=== PATIENT | female | born 1955 | race Two or more races ===

== ENCOUNTER → 2024-01-24 | Outpatient (CLI) | payer MEDICARE, MEDICAID, SELFPAY ==
[2024-01-24 11:43] LABS: Basophils % (Auto) 1 % (0-2.5); Eosinophils # (Auto) 0.1 Thou/mm3 (0.0-0.5); Eosinophils % (Auto) 1 % (0-10); Hematocrit 35.9 % (36.0-46.0); Hemoglobin 11.3 g/dL (12.0-16.0); Immature Granulocytes % (Auto) 1 % (0-0); Immature Granulocytes Auto 0.06 Thou/mm3 (0.00-0.00); Immature Reticulocyte Fraction 18.4 % (3.0-15.9); Lymphocytes # (Auto) 0.9 Thou/mm3 (1.0-4.8); Lymphocytes % (Auto) 21 % (10-50); Mean Corpuscular HGB Conc 31.5 g/dl (31.0-37.0); Mean Corpuscular Hemoglobin 37.2 pg (25.0-35.0); Mean Corpuscular Volume 118 fL (80-100); Monocytes # (Auto) 0.6 Thou/mm3 (0.0-0.8); Monocytes % (Auto) 14 % (0-12); Neutrophils # (Auto) 2.7 Thou/mm3 (1.8-7.7); Neutrophils % (Auto) 62 % (37-80); Nucleated Red Blood Cell % 0 /100 WBC (0); Platelet Count 188 Thou/mm3 (140-440); RDW Standard Deviation 52.7 fL (36.4-46.3); Red Blood Count 3.04 Miln/mm3 (4.00-5.20); Reticulocyte % (Auto) 2.9 % (0.5-1.5); Reticulocyte Absolute Auto 87.2 Biln/L (25.0-75.0); Reticulocyte Hgb Content 35.3 pg (28.0-35.0); White Blood Count 4.5 Thou/mm3 (3.6-11.0)
[2024-01-24 12:00] LABS: Alanine Aminotransferase 326 U/L (10-49); Albumin, Serum 3.5 gm/dL (3.4-4.8); Albumin/Globulin Ratio 1.9 (1.2-2.2); Alkaline Phosphatase 198 U/L (46-116); Anion Gap 3 (7-16); Aspartate Amino Transferase 143 U/L (0-34); BUN/Creatinine Ratio 32 Ratio (12-20); Bilirubin,Total 0.3 mg/dL (0.3-1.2); Blood Urea Nitrogen 19 mg/dL (9-23); Calcium 8.7 mg/dL (8.3-10.6); Calcium (Corrected) 9.1 mg/dL (8.5-10.1); Carbon Dioxide 26.4 mMol/L (20.0-31.0); Chloride 109 mMol/L (98-107); Creatinine (Component) 0.6 mg/dL (0.6-1.3); Globulin 1.8 gm/dL (2.3-3.5); Glucose 104 mg/dL (74-106); Osmolality,Calculated 277 (275-295); Potassium 4.5 mMol/L (3.4-5.1); Sodium 138 mMol/L (136-145); Total Protein 5.3 gm/dL (5.7-8.2); eGFR > 60 See Note
[2024-01-24 12:05] LABS: Folate 9.95 ng/mL (>5.38); Vitamin B12 467 pg/mL (211-911)
[2024-01-24 12:14] LABS: Ferritin 1093 ng/mL (7.3-270.7); Iron 54 mcg/dL (50-170); Percent Iron Saturation 19 % (20-55); Total Iron Binding Capacity 281 mcg/dL (250-425); Unsaturated Iron Binding 227 (225-295)
== END | disposition home or self-care (01) ==
LOC: SCTO 10:44
PROVIDERS: PCP Physician Assistant; Referring Provider Nurse Practitioner Family; Visit Provider Nurse Practitioner Family
DX: D50.9 Iron deficiency anemia, unspecified (principal)
CPT/HCPCS: 36415; 80053; 82607; 82728; 82746; 83540; 83550; 85025; 85046

== ENCOUNTER → 2024-01-28 | Outpatient (CLI) | payer MEDICARE, MEDICAID, SELFPAY ==
[2024-01-28 09:33] LABS: Alanine Aminotransferase 83 U/L (10-49); Albumin, Serum 3.5 gm/dL (3.4-4.8); Albumin/Globulin Ratio 2.1 (1.2-2.2); Alkaline Phosphatase 130 U/L (46-116); Anion Gap 6 (7-16); Aspartate Amino Transferase 21 U/L (0-34); BUN/Creatinine Ratio 26 Ratio (12-20); Bilirubin,Total 0.2 mg/dL (0.3-1.2); Blood Urea Nitrogen 21 mg/dL (9-23); Calcium 8.8 mg/dL (8.3-10.6); Calcium (Corrected) 9.2 mg/dL (8.5-10.1); Carbon Dioxide 26.3 mMol/L (20.0-31.0); Chloride 107 mMol/L (98-107); Creatinine (Component) 0.8 mg/dL (0.6-1.3); Globulin 1.7 gm/dL (2.3-3.5); Glucose 96 mg/dL (74-106); Osmolality,Calculated 280 (275-295); Potassium 4.8 mMol/L (3.4-5.1); Sodium 139 mMol/L (136-145); Total Protein 5.2 gm/dL (5.7-8.2); eGFR > 60 See Note
== END | disposition home or self-care (01) ==
LOC: CDIM 08:21 → COPL 08:25
PROVIDERS: PCP Physician Assistant; Referring Provider Internal Medicine; Visit Provider Internal Medicine
DX: D50.9 Iron deficiency anemia, unspecified (principal); E21.3 Hyperparathyroidism, unspecified; E55.9 Vitamin D deficiency, unspecified; G47.00 Insomnia, unspecified; G60.9 Hereditary and idiopathic neuropathy, unspecified; I10 Essential (primary) hypertension; J45.909 Unspecified asthma, uncomplicated; K25.9 Gastric ulcer, unspecified as acute or chronic, without hemorrhage or perforation; K90.9 Intestinal malabsorption, unspecified; M18.12 Unilateral primary osteoarthritis of first carpometacarpal joint, left hand; M19.011 Primary osteoarthritis, right shoulder; M25.511 Pain in right shoulder; M54.9 Dorsalgia, unspecified; M81.0 Age-related osteoporosis without current pathological fracture; Z13.820 Encounter for screening for osteoporosis; Z78.0 Asymptomatic menopausal state; Z79.899 Other long term (current) drug therapy
CPT/HCPCS: 36415; 80053

== ENCOUNTER → 2024-02-10 | Outpatient (CLI) | payer MEDICARE, MEDICAID, SELFPAY ==
[2024-02-10 13:57] LABS: Basophils # (Auto) 0.1 Thou/mm3 (0.0-0.2); Basophils % (Auto) 1 % (0-2.5); Eosinophils # (Auto) 0.1 Thou/mm3 (0.0-0.5); Eosinophils % (Auto) 1 % (0-10); Hematocrit 37.4 % (36.0-46.0); Hemoglobin 11.9 g/dL (12.0-16.0); Immature Granulocytes % (Auto) 3 % (0-0); Immature Granulocytes Auto 0.19 Thou/mm3 (0.00-0.00); Lymphocytes # (Auto) 1.4 Thou/mm3 (1.0-4.8); Lymphocytes % (Auto) 18 % (10-50); Mean Corpuscular HGB Conc 31.8 g/dl (31.0-37.0); Mean Corpuscular Hemoglobin 36.1 pg (25.0-35.0); Mean Corpuscular Volume 113 fL (80-100); Monocytes # (Auto) 0.7 Thou/mm3 (0.0-0.8); Monocytes % (Auto) 9 % (0-12); Neutrophils # (Auto) 5.4 Thou/mm3 (1.8-7.7); Neutrophils % (Auto) 69 % (37-80); Nucleated Red Blood Cell % 0 /100 WBC (0); Platelet Count 264 Thou/mm3 (140-440); White Blood Count 7.7 Thou/mm3 (3.6-11.0)
[2024-02-10 14:22] LABS: Alanine Aminotransferase 30 U/L (10-49); Albumin, Serum 3.5 gm/dL (3.4-4.8); Albumin/Globulin Ratio 1.9 (1.2-2.2); Alkaline Phosphatase 86 U/L (46-116); Anion Gap 7 (7-16); Aspartate Amino Transferase 26 U/L (0-34); BUN/Creatinine Ratio 21 Ratio (12-20); Bilirubin,Total 0.2 mg/dL (0.3-1.2); Blood Urea Nitrogen 19 mg/dL (9-23); Calcium 8.6 mg/dL (8.3-10.6); Carbon Dioxide 23.1 mMol/L (20.0-31.0); Chloride 107 mMol/L (98-107); Creatinine (Component) 0.9 mg/dL (0.6-1.3); Globulin 1.8 gm/dL (2.3-3.5); Glucose 75 mg/dL (74-106); Osmolality,Calculated 275 (275-295); Potassium 4.4 mMol/L (3.4-5.1); Sodium 137 mMol/L (136-145); Total Protein 5.3 gm/dL (5.7-8.2); eGFR > 60 See Note
[2024-02-10 14:25] LABS: Folate 20.21 ng/mL (>5.38); Vitamin B12 859 pg/mL (211-911)
[2024-02-10 15:14] LABS: Ferritin 497 ng/mL (7.3-270.7); Total Iron Binding Capacity 260 mcg/dL (250-425)
[2024-02-10 16:09] LABS: Iron 59 mcg/dL (50-170); Percent Iron Saturation 22 % (20-55); Unsaturated Iron Binding 201 (225-295)
[2024-02-10 16:58] LABS: Path Review Blood Smear Sent to Pathologist
== END | disposition home or self-care (01) ==
LOC: SCTO 13:22
PROVIDERS: PCP Physician Assistant; Referring Provider Nurse Practitioner Family; Visit Provider Nurse Practitioner Family
DX: D50.9 Iron deficiency anemia, unspecified (principal)
CPT/HCPCS: 36415; 80053; 82607; 82728; 82746; 83540; 83550; 85025

== ENCOUNTER 2024-02-13 11:01 | Outpatient (RCR) | payer MEDICARE, MEDICAID, SELFPAY | END 2024-02-22 23:59 | disposition home or self-care (01) | LOC: SCTC 11:01 | PROVIDERS: PCP Physician Assistant; Referring Provider Physician Assistant; Visit Provider Nurse Practitioner Family | DX: D50.9 Iron deficiency anemia, unspecified (principal); E53.8 Deficiency of other specified B group vitamins; Z87.11 Personal history of peptic ulcer disease; Z90.3 Acquired absence of stomach [part of]; R92.333 Mammographic heterogeneous density, bilateral breasts | CPT/HCPCS: 96372; 99212; J3420; G0463 ==

== ENCOUNTER → 2024-03-03 | Outpatient (CLI) | payer MEDICARE, MEDICAID, SELFPAY ==
[2024-03-03 13:22] LABS: Basophils # (Auto) 0.1 Thou/mm3 (0.0-0.2); Basophils % (Auto) 1 % (0-2.5); Eosinophils # (Auto) 0.1 Thou/mm3 (0.0-0.5); Eosinophils % (Auto) 2 % (0-10); Hematocrit 37.3 % (36.0-46.0); Hemoglobin 11.7 g/dL (12.0-16.0); Immature Granulocytes % (Auto) 2 % (0-0); Immature Granulocytes Auto 0.08 Thou/mm3 (0.00-0.00); Immature Reticulocyte Fraction 27.8 % (3.0-15.9); Lymphocytes # (Auto) 1.2 Thou/mm3 (1.0-4.8); Lymphocytes % (Auto) 27 % (10-50); Mean Corpuscular HGB Conc 31.4 g/dl (31.0-37.0); Mean Corpuscular Hemoglobin 36.1 pg (25.0-35.0); Mean Corpuscular Volume 115 fL (80-100); Monocytes # (Auto) 0.4 Thou/mm3 (0.0-0.8); Monocytes % (Auto) 8 % (0-12); Neutrophils # (Auto) 2.8 Thou/mm3 (1.8-7.7); Neutrophils % (Auto) 61 % (37-80); Nucleated Red Blood Cell % 0 /100 WBC (0); Platelet Count 267 Thou/mm3 (140-440); RDW Standard Deviation 53.1 fL (36.4-46.3); Red Blood Count 3.24 Miln/mm3 (4.00-5.20); Reticulocyte % (Auto) 3.1 % (0.5-1.5); Reticulocyte Absolute Auto 101.7 Biln/L (25.0-75.0); White Blood Count 4.6 Thou/mm3 (3.6-11.0)
[2024-03-03 13:50] LABS: Alanine Aminotransferase 98 U/L (10-49); Albumin, Serum 3.6 gm/dL (3.4-4.8); Albumin/Globulin Ratio 2.3 (1.2-2.2); Alkaline Phosphatase 71 U/L (46-116); Anion Gap 6 (7-16); Aspartate Amino Transferase 68 U/L (0-34); BUN/Creatinine Ratio 16 Ratio (12-20); Bilirubin,Total 0.2 mg/dL (0.3-1.2); Blood Urea Nitrogen 11 mg/dL (9-23); Calcium 8.5 mg/dL (8.3-10.6); Calcium (Corrected) 8.8 mg/dL (8.5-10.1); Carbon Dioxide 29.3 mMol/L (20.0-31.0); Chloride 107 mMol/L (98-107); Creatinine (Component) 0.7 mg/dL (0.6-1.3); Globulin 1.6 gm/dL (2.3-3.5); Glucose 98 mg/dL (74-106); Osmolality,Calculated 282 (275-295); Potassium 4.3 mMol/L (3.4-5.1); Sodium 142 mMol/L (136-145); Total Protein 5.2 gm/dL (5.7-8.2); eGFR > 60 See Note
[2024-03-03 15:13] LABS: Folate 13.88 ng/mL (>5.38); Vitamin B12 462 pg/mL (211-911)
[2024-03-03 16:06] LABS: Ferritin 401 ng/mL (7.3-270.7); Total Iron Binding Capacity 277 mcg/dL (250-425)
[2024-03-03 16:22] LABS: Iron 74 mcg/dL (50-170); Percent Iron Saturation 26 % (20-55); Unsaturated Iron Binding 203 (225-295)
== END | disposition home or self-care (01) ==
LOC: SCTO 12:50
PROVIDERS: PCP Physician Assistant; Referring Provider Nurse Practitioner Family; Visit Provider Nurse Practitioner Family
DX: D50.9 Iron deficiency anemia, unspecified (principal)
CPT/HCPCS: 36415; 80053; 82607; 82728; 82746; 83540; 83550; 85025; 85046

== ENCOUNTER → 2024-03-05 | Outpatient (CLI) | payer MEDICARE, MEDICAID, SELFPAY ==
--- NOTE | 2024-03-05 13:00 | XR_ITS ---
Examination: CT abdomen with intravenous contrast CT pelvis with intravenous contrast 2-D coronal reconstructions 2-D sagittal reconstructions Date and time of exam:March 05, 2024 1422 hours INDICATIONS: Abdominal pain with nausea vomiting beginning 2 weeks ago, enlarged common bile duct [address] study July 20, 2016,. Diagnosis anemia. CTDI: vol (mGy) 4.8 DLP: (mGycm) 265 Technique: Multiple axial sections of the abdomen and pelvis have been obtained. 64 slice high-resolution scanner used. 3 mm axial sections have been obtained, post intravenous injection 60 cc [id number] 2-D sagittal, coronal reconstructions obtained. Low dose protocols were performed. One or more of the following dose reduction techniques were used; automated exposure control, adjustment of the mA and/or KV according to patient size, use of iterative reconstruction technique. Findings: No focal liver lesions Intrahepatic biliary tract dilatation Absent gallbladder Common bile duct 12 mm Spleen not enlarged No pancreatic or adrenal mass Minimally dilated pancreatic duct No hydronephrosis Aorta normal size Normal appendix No bowel obstruction Mildly thickened small bowel loop dumont No bowel obstruction No pelvic mass Moderate osteopenia IMPRESSION: Mild enlargement, bile duct, recommend hepatobiliary sonography follow-up Small bowel enteritis pattern
== END | disposition home or self-care (01) ==
PROVIDERS: PCP Physician Assistant; Referring Provider Nurse Practitioner Family; Visit Provider Nurse Practitioner Family
DX: K83.8 Other specified diseases of biliary tract (principal)
CPT/HCPCS: 74177; A4649; Q9967

== ENCOUNTER → 2024-04-09 | Outpatient (CLI) | payer MEDICARE, MEDICAID, SELFPAY ==
[2024-04-09 11:59] LABS: Basophils # (Auto) 0.1 Thou/mm3 (0.0-0.2); Basophils % (Auto) 1 % (0-2.5); Eosinophils # (Auto) 0.1 Thou/mm3 (0.0-0.5); Eosinophils % (Auto) 2 % (0-10); Hematocrit 36.5 % (36.0-46.0); Hemoglobin 11.7 g/dL (12.0-16.0); Immature Granulocytes % (Auto) 1 % (0-0); Immature Granulocytes Auto 0.04 Thou/mm3 (0.00-0.00); Immature Reticulocyte Fraction 30.3 % (3.0-15.9); Lymphocytes # (Auto) 2.1 Thou/mm3 (1.0-4.8); Lymphocytes % (Auto) 35 % (10-50); Mean Corpuscular HGB Conc 32.1 g/dl (31.0-37.0); Mean Corpuscular Hemoglobin 36.2 pg (25.0-35.0); Mean Corpuscular Volume 113 fL (80-100); Monocytes # (Auto) 0.5 Thou/mm3 (0.0-0.8); Monocytes % (Auto) 8 % (0-12); Neutrophils # (Auto) 3.2 Thou/mm3 (1.8-7.7); Neutrophils % (Auto) 54 % (37-80); Nucleated Red Blood Cell % 0 /100 WBC (0); Platelet Count 218 Thou/mm3 (140-440); RDW Standard Deviation 51.3 fL (36.4-46.3); Red Blood Count 3.23 Miln/mm3 (4.00-5.20); Reticulocyte Absolute Auto 96.6 Biln/L (25.0-75.0); Reticulocyte Hgb Content 36.6 pg (28.0-35.0); White Blood Count 5.9 Thou/mm3 (3.6-11.0)
[2024-04-09 12:17] LABS: Alanine Aminotransferase 22 U/L (10-49); Albumin, Serum 3.8 gm/dL (3.4-4.8); Albumin/Globulin Ratio 2.4 (1.2-2.2); Alkaline Phosphatase 64 U/L (46-116); Anion Gap 7 (7-16); Aspartate Amino Transferase 17 U/L (0-34); BUN/Creatinine Ratio 23 Ratio (12-20); Bilirubin,Total 0.2 mg/dL (0.3-1.2); Blood Urea Nitrogen 14 mg/dL (9-23); Calcium 9.1 mg/dL (8.3-10.6); Calcium (Corrected) 9.3 mg/dL (8.5-10.1); Carbon Dioxide 27.1 mMol/L (20.0-31.0); Chloride 108 mMol/L (98-107); Creatinine (Component) 0.6 mg/dL (0.6-1.3); Globulin 1.6 gm/dL (2.3-3.5); Glucose 104 mg/dL (74-106); Osmolality,Calculated 283 (275-295); Sodium 142 mMol/L (136-145); Total Protein 5.4 gm/dL (5.7-8.2); eGFR > 60 See Note
[2024-04-09 20:30] LABS: Folate 11.91 ng/mL (>5.38); Vitamin B12 422 pg/mL (211-911)
[2024-04-09 22:47] LABS: Ferritin 238 ng/mL (7.3-270.7); Total Iron Binding Capacity 294 mcg/dL (250-425)
[2024-04-09 22:56] LABS: Iron 56 mcg/dL (50-170); Percent Iron Saturation 19 % (20-55); Unsaturated Iron Binding 238 (225-295)
== END | disposition home or self-care (01) ==
PROVIDERS: PCP Nurse Practitioner Family; Referring Provider Nurse Practitioner Family; Visit Provider Nurse Practitioner Family
DX: D64.9 Anemia, unspecified (principal); D50.9 Iron deficiency anemia, unspecified
CPT/HCPCS: 36415; 80053; 82607; 82728; 82746; 83540; 83550; 85025; 85046

== ENCOUNTER 2024-05-05 09:28 | Outpatient (RCR) | payer MEDICARE, MEDICAID, SELFPAY | END 2024-05-22 23:59 | disposition home or self-care (01) | LOC: SCTC 09:28 | PROVIDERS: PCP Physician Assistant; Referring Provider Nurse Practitioner Family; Visit Provider Nurse Practitioner Family | DX: D50.9 Iron deficiency anemia, unspecified (principal); K83.8 Other specified diseases of biliary tract; E53.8 Deficiency of other specified B group vitamins | CPT/HCPCS: 36415; 80053; 80074; 82607; 82728; 82746; 83540; 83550; 85025; 85046; 99212; G0463 ==

== ENCOUNTER → 2024-05-05 | Outpatient (CLI) | payer MEDICARE, SELFPAY ==
[2024-05-05 11:44] LABS: Basophils # (Auto) 0.1 Thou/mm3 (0.0-0.2); Basophils % (Auto) 1 % (0-2.5); Eosinophils # (Auto) 0.1 Thou/mm3 (0.0-0.5); Eosinophils % (Auto) 2 % (0-10); Hematocrit 37.2 % (36.0-46.0); Hemoglobin 11.5 g/dL (12.0-16.0); Immature Granulocytes % (Auto) 2 % (0-0); Immature Reticulocyte Fraction 27.5 % (3.0-15.9); Lymphocytes # (Auto) 1.4 Thou/mm3 (1.0-4.8); Lymphocytes % (Auto) 25 % (10-50); Mean Corpuscular HGB Conc 30.9 g/dl (31.0-37.0); Mean Corpuscular Hemoglobin 34.5 pg (25.0-35.0); Mean Corpuscular Volume 112 fL (80-100); Monocytes # (Auto) 0.5 Thou/mm3 (0.0-0.8); Monocytes % (Auto) 10 % (0-12); Neutrophils # (Auto) 3.3 Thou/mm3 (1.8-7.7); Neutrophils % (Auto) 60 % (37-80); Nucleated Red Blood Cell % 0 /100 WBC (0); Platelet Count 249 Thou/mm3 (140-440); RDW Standard Deviation 49.8 fL (36.4-46.3); Red Blood Count 3.33 Miln/mm3 (4.00-5.20); Reticulocyte % (Auto) 1.9 % (0.5-1.5); Reticulocyte Absolute Auto 62.9 Biln/L (25.0-75.0); Reticulocyte Hgb Content 34.7 pg (28.0-35.0); White Blood Count 5.6 Thou/mm3 (3.6-11.0)
[2024-05-05 12:22] LABS: Alanine Aminotransferase 27 U/L (10-49); Albumin, Serum 3.4 gm/dL (3.4-4.8); Albumin/Globulin Ratio 1.9 (1.2-2.2); Alkaline Phosphatase 51 U/L (46-116); Anion Gap 5 (7-16); Aspartate Amino Transferase 27 U/L (0-34); BUN/Creatinine Ratio 20 Ratio (12-20); Bilirubin,Total 0.2 mg/dL (0.3-1.2); Blood Urea Nitrogen 12 mg/dL (9-23); Calcium 8.8 mg/dL (8.3-10.6); Calcium (Corrected) 9.3 mg/dL (8.5-10.1); Carbon Dioxide 27.9 mMol/L (20.0-31.0); Chloride 110 mMol/L (98-107); Creatinine (Component) 0.6 mg/dL (0.6-1.3); Globulin 1.8 gm/dL (2.3-3.5); Glucose 106 mg/dL (74-106); Osmolality,Calculated 284 (275-295); Potassium 4.4 mMol/L (3.4-5.1); Sodium 143 mMol/L (136-145); Total Protein 5.2 gm/dL (5.7-8.2); eGFR > 60 See Note
[2024-05-05 12:25] LABS: Ferritin 203 ng/mL (7.3-270.7); Iron 41 mcg/dL (50-170); Percent Iron Saturation 15 % (20-55); Total Iron Binding Capacity 273 mcg/dL (250-425); Unsaturated Iron Binding 232 (225-295)
[2024-05-05 13:19] LABS: Folate 8.91 ng/mL (>5.38); Hepatitis A Antibody IgM Non Reactive (Non React); Hepatitis B Core Antibody IgM Non Reactive (Non React); Hepatitis B Surface Antigen Non Reactive (Non React); Hepatitis C Antibody Non Reactive (Non React); Vitamin B12 491 pg/mL (211-911)
== END | disposition home or self-care (01) ==
PROVIDERS: PCP Nurse Practitioner Family; Referring Provider Nurse Practitioner Family; Visit Provider Nurse Practitioner Family
DX: D50.9 Iron deficiency anemia, unspecified (principal)
CPT/HCPCS: 36415; 80053; 80074; 82607; 82728; 82746; 83540; 83550; 85025; 85046

== ENCOUNTER → 2024-05-07 | Outpatient (CLI) | payer MEDICARE, MEDICAID, SELFPAY ==
--- NOTE | 2024-05-07 10:30 | XR_ITS ---
Examination: Abdomen sonogram, Limited Date and time of exam: May 07, 2024 1033 hours INDICATIONS: Common bile duct 15 mm on ultrasound abdomen May 10, 2022 Technique: Real-time meyer scale transabdominal sonographic images of the upper abdomen obtained. Findings: Absent gallbladder Enlarged common bile duct 14 mm no definite stones Pancreatic head 2.4 cm Liver 15.6 cm smooth contour no focal liver lesions Normal hepatopedal portal venous flow Patent IVC IMPRESSION: Abnormally enlarged common bile duct 14 mm, consider MRCP follow-up
== END | disposition home or self-care (01) ==
LOC: CDIM 10:20
PROVIDERS: PCP Physician Assistant; Referring Provider Nurse Practitioner Family; Visit Provider Nurse Practitioner Family
DX: K83.9 Disease of biliary tract, unspecified (principal)
CPT/HCPCS: 76705

== ENCOUNTER → 2024-06-10 | Outpatient (CLI) | payer MEDICARE, MEDICAID, SELFPAY ==
--- NOTE | 2024-06-10 08:37 | XR_ITS ---
MRI abdomen, without contrast. MRCP Date and time of exam: 04/10/[address] abdomen pelvis March 05, 2024. INDICATIONS: Abdominal pain bloating nausea vomiting beginning one year ago, hepatobiliary sonography May 07, 2024 enlarged common bile duct Technique: Multiple axial and coronal images of the abdomen have been obtained with the Siemens 1.5T MRI scanner. Images obtained included T1 weighted transverse images, T2-weighted transverse images, T2-weighted transverse images fat-suppressed, T2 weighted haste fat suppressed transverse images, T1 weighted images, in and out of phase images, T2-weighted coronal images, breath hold, T2 weighted haze coronal images as well as T2 weighted coronal thick slab images, MRCP. Findings: Absent gallbladder Intrahepatic biliary tract dilatation Marked abnormal enlargement common bile duct 15 mm with 4 mm stone in the distal common bile duct and abrupt termination of the common bile duct No definite pancreatic mass Hepatomegaly 17 cm No ascites No hydronephrosis IMPRESSION: Abnormal extra hepatic biliary tract obstruction, abrupt tapering of the common bile duct, 4 mm stone in the distal common bile duct Recommend ERCP follow-up to exclude malignant stricture of the distal common bile duct
== END | disposition home or self-care (01) ==
PROVIDERS: Referring Provider Nurse Practitioner Family; Visit Provider Nurse Practitioner Family
DX: K76.89 Other specified diseases of liver (principal); K80.50 Calculus of bile duct without cholangitis or cholecystitis without obstruction
CPT/HCPCS: S8037; 74181

== ENCOUNTER → 2024-06-10 | Outpatient (CLI) | payer MEDICARE, MEDICAID, SELFPAY ==
[2024-06-10 11:03] LABS: Parathyroid Hormone Intact 96.1 pg/ml (18.5-88.0)
[2024-06-10 11:06] LABS: Vitamin D 25 Hydroxy Total 85.7 ng/mL (7.3-40.2)
[2024-06-10 11:15] LABS: Alanine Aminotransferase 52 U/L (10-49); Albumin, Serum 3.6 gm/dL (3.4-4.8); Albumin/Globulin Ratio 2.1 (1.2-2.2); Alkaline Phosphatase 79 U/L (46-116); Anion Gap 8 (7-16); Aspartate Amino Transferase 31 U/L (0-34); BUN/Creatinine Ratio 26 Ratio (12-20); Bilirubin,Total 0.2 mg/dL (0.3-1.2); Blood Urea Nitrogen 21 mg/dL (9-23); Calcium 8.7 mg/dL (8.3-10.6); Carbon Dioxide 27.7 mMol/L (20.0-31.0); Chloride 103 mMol/L (98-107); Creatinine (Component) 0.8 mg/dL (0.6-1.3); Globulin 1.7 gm/dL (2.3-3.5); Glucose 88 mg/dL (74-106); Osmolality,Calculated 279 (275-295); Phosphorous 3.9 mg/dL (2.4-5.1); Potassium 4.4 mMol/L (3.4-5.1); Sodium 139 mMol/L (136-145); Total Protein 5.3 gm/dL (5.7-8.2); eGFR > 60 See Note
[2024-06-14 15:35] LABS: Albumin 3.2 g/dL (3.8-4.8); Alpha-1-Globulin 0.3 g/dL (0.2-0.3); Alpha-2-Globulin 0.6 g/dL (0.5-0.9); Beta-1-Globulin 0.3 g/dL (0.4-0.6); Beta-2-globulin 0.3 g/dL (0.2-0.5); Gamma Globulin 0.5 g/dL (0.8-1.7)
[2024-06-15 07:00] LABS: Protein, total, serum 5.2 g/dL (6.1-8.1)
== END | disposition home or self-care (01) ==
PROVIDERS: PCP Physician Assistant
DX: D50.9 Iron deficiency anemia, unspecified (principal); E21.3 Hyperparathyroidism, unspecified; E55.9 Vitamin D deficiency, unspecified; G47.00 Insomnia, unspecified; G80.9 Cerebral palsy, unspecified; I10 Essential (primary) hypertension; J45.909 Unspecified asthma, uncomplicated; K25.4 Chronic or unspecified gastric ulcer with hemorrhage; K25.9 Gastric ulcer, unspecified as acute or chronic, without hemorrhage or perforation; K90.9 Intestinal malabsorption, unspecified; M18.12 Unilateral primary osteoarthritis of first carpometacarpal joint, left hand; M19.011 Primary osteoarthritis, right shoulder; M25.511 Pain in right shoulder; M54.9 Dorsalgia, unspecified; M81.0 Age-related osteoporosis without current pathological fracture; Z68.1 Body mass index [BMI] 19.9 or less, adult; Z78.0 Asymptomatic menopausal state; Z79.899 Other long term (current) drug therapy
CPT/HCPCS: 36415; 80053; 82306; 83970; 84100; 84155; 84165

== ENCOUNTER 2024-06-17 14:58 | Outpatient (RCR) | payer MEDICARE, MEDICAID, SELFPAY | END 2024-06-22 23:59 | disposition home or self-care (01) | LOC: SCTC 14:58 | PROVIDERS: PCP Physician Assistant; Referring Provider Physician Assistant; Visit Provider Nurse Practitioner Family | DX: D50.9 Iron deficiency anemia, unspecified (principal); E53.8 Deficiency of other specified B group vitamins; K83.8 Other specified diseases of biliary tract; K25.9 Gastric ulcer, unspecified as acute or chronic, without hemorrhage or perforation; Z90.3 Acquired absence of stomach [part of]; D24.1 Benign neoplasm of right breast | CPT/HCPCS: 96365; 96372; 99212; J2919; J3420; J3490; J7040; J7050; Q0138; G0463 ==

== ENCOUNTER → 2024-06-19 | Outpatient (CLI) | payer MEDICARE, MEDICAID, SELFPAY ==
[2024-06-19 09:52] LABS: Flow Cytometry* See Sep Rpt
[2024-06-19 10:23] LABS: Basophils % (Auto) 1 % (0-2.5); Eosinophils # (Auto) 0.1 Thou/mm3 (0.0-0.5); Eosinophils % (Auto) 2 % (0-10); Hematocrit 35.6 % (36.0-46.0); Hemoglobin 11.2 g/dL (12.0-16.0); Immature Granulocytes % (Auto) 2 % (0-0); Immature Granulocytes Auto 0.08 Thou/mm3 (0.00-0.00); Lymphocytes # (Auto) 1.1 Thou/mm3 (1.0-4.8); Lymphocytes % (Auto) 28 % (10-50); Mean Corpuscular HGB Conc 31.5 g/dl (31.0-37.0); Mean Corpuscular Hemoglobin 35.6 pg (25.0-35.0); Mean Corpuscular Volume 113 fL (80-100); Monocytes # (Auto) 0.3 Thou/mm3 (0.0-0.8); Monocytes % (Auto) 7 % (0-12); Neutrophils # (Auto) 2.4 Thou/mm3 (1.8-7.7); Neutrophils % (Auto) 61 % (37-80); Nucleated Red Blood Cell % 0 /100 WBC (0); Platelet Count 206 Thou/mm3 (140-440); RDW Standard Deviation 55.7 fL (36.4-46.3); Red Blood Count 3.15 Miln/mm3 (4.00-5.20)
[2024-06-19 10:57] LABS: Alanine Aminotransferase 23 U/L (10-49); Albumin, Serum 3.1 gm/dL (3.4-4.8); Albumin/Globulin Ratio 1.8 (1.2-2.2); Alkaline Phosphatase 68 U/L (46-116); Anion Gap 7 (7-16); Aspartate Amino Transferase 20 U/L (0-34); BUN/Creatinine Ratio 30 Ratio (12-20); Bilirubin,Total < 0.2 mg/dL (0.3-1.2); Blood Urea Nitrogen 15 mg/dL (9-23); Calcium 8.5 mg/dL (8.3-10.6); Calcium (Corrected) 9.2 mg/dL (8.5-10.1); Carbon Dioxide 29.3 mMol/L (20.0-31.0); Chloride 105 mMol/L (98-107); Creatinine (Component) 0.5 mg/dL (0.6-1.3); Globulin 1.7 gm/dL (2.3-3.5); Glucose 96 mg/dL (74-106); Osmolality,Calculated 282 (275-295); Sodium 141 mMol/L (136-145); Total Protein 4.8 gm/dL (5.7-8.2); eGFR > 60 See Note
== END | disposition home or self-care (01) ==
LOC: SCTO 09:35
PROVIDERS: PCP Physician Assistant; Referring Provider Nurse Practitioner Family; Visit Provider Nurse Practitioner Family
DX: D50.9 Iron deficiency anemia, unspecified (principal)
CPT/HCPCS: 36415; 80053; 85025

== ENCOUNTER 2024-07-06 14:33 | Outpatient (RCR) | payer MEDICARE, MEDICAID, SELFPAY ==
--- NOTE | 2024-07-02 14:04 | CTCFLWUP_ITS ---
Patient: AUDELIA WEST : 1955 Page 2 of 2 FOLLOW UP NOTE DATE OF SERVICE: 07/02/2024 NAME: AUDELIA WEST ACCOUNT: [id number] : 1955 AGE: 69 INTERVAL HISTORY: Chief Complaint Follow-up for anemia, enlarged red blood cells History of Present Illness Brett Win presents for follow-up of anemia and macrocytosis. The patient has been under care for these conditions, with a previous bone marrow biopsy last year that was negative for cancer. The patient's current visit is focused on reviewing recent test results and discussing ongoing management of her hematological issues. A recent blood analysis has again shown no evidence of cancer. The patient's anemia persists, and her red blood cells continue to be larger than normal. During the visit, it was noted that the patient has gallstones in her gallbladder and bile duct, necessitating a referral to gastroenterology for further evaluation and management. This finding may be related to her overall health status, though the connection to her hematological issues is not explici tly clear. Medical History - Anemia - Macrocytosis (larger cell size) Surgical History - Bone marrow biopsy last year ONCOLOGY HISTORY:?[facility] Oncology Hx? DIAGNOSIS: Iron deficiency anemia, unspecified [ICD10] D50.9 History of iron deficiency anemia. History of B12 deficiency, on monthly injections. Hx of partial gastrectomy twice due to peptic ulcer disease (1997, 1999). History of left intertrochanteric hip fracture (07/08/2022) Bone marrow biopsy negative, (06/13/2023 and 08/07/2022). Oozing gastric ulcers, EGD, (09/09/2023). s/p multiple Feraheme infusions ?[facility] Dx? DATE OF DIAGNOSIS: STAGE/TNM: TREATMENT HISTORY: Care?Plan Start?Date Cycle Day Intent FERAheme 08/05/2018 1 30 Palliative B?12 01/11/2022 1 28 Palliative VENOfer?200mg?IV?wkly?for?10?weeks 01/11/2022 1 70 Palliative FERAheme?4?doses 01/11/2022 1 28 Maintenance FERAheme?4?doses 07/29/2023 1 28 Palliative FERAheme?4?doses 11/21/2023 1 28 Palliative B?12?monthly 11/21/2023 1 28 Palliative FERAheme 06/08/2024 1 30 Palliative FERAheme 06/22/2024 1 30 Palliative HISTORY OF PRESENT ILLNESS: PREVIOUS NOTE: Patient unable to tolerate oral ferrous sulfate due to constipation. Last Feraheme infusion was on 12/19/2023. Patient follows up with Dr. Aguilar, GI. Patient denies bloody stools, chest pain vomiting fever. Ambulating well without any help. HISTORY: Audelia West is a 69-year-old [place] speaking female with following history. 1997: Patient had partial gastrectomy for peptic ulcer disease. 1999: Patient had repeat surgery on the stomach and according patient she had some more part of her stomach was removed due to recurrence of her peptic ulcer disease. Following that patient was getting repeat blood transfusions due to severe anemia. 2013: She was found to have iron deficiency anemia and received multiple IV iron infusions with significant improvement in her hemoglobin. More recently she was on Feraheme infusions. 08/13/2017: Patient received 510 mg of Feraheme. 01/02/2018: Patient had a bone marrow biopsy done which showed normocellular bone marrow with trilineage hematopoiesis and erythroid hyperplasia. No evidence of dysplasia, increased blasts, lymphoma or myeloma identified. As per the pathologist the prior bone marrow biopsy done on 05/06/2013 also showed a similar morphology. 08/05/2018?08/12/2018: Patient received 1020 mg of Feraheme. 02/12/2019: Hemoglobin 12.4, hematocrit 41, MCV 103. Iron saturation is 17% with a ferritin of 57. 09/09/2019: AST 536, ALT 576. T bili 0.3 iron saturation 12% with ferritin 977. 09/15/2019: AST 22, ALT 77. 09/28/2019?10/05/2019: Patient received 1020 mg of Feraheme. 04/25/2020: Hemoglobin 12.3, MCV 94, WBC 5.7, platelets 316,000. Iron saturation 12%, ferritin 35. 10/12/2020?10/18/2020: Patient received 1020 mg of Feraheme. 05/29/2021: WBC 6.9, hemoglobin 10.5, MCV 104, platelets 416,000, iron saturation 19%, ferritin 66, B12 381, folate 11.8. 06/29/2021: EGD? 07/27/2021: Repeat EGD? 09/11/2021: WBC 11.4, ANC 5.6, bands 8%, metamyelocytes 5%, myelocytes 13%, promyelocytes 2%, hemoglobin 8.8, MCV 110, platelets 398,000. Iron saturation 32%, ferritin 239, B12 513, folate of 9.9, TSH 2.76. 10/19/2021: Bone marrow biopsy and aspiration 12/28/2021: Vitamin B12 205 (211?911) 06/25/2022 - 07/02/2022: Ms. West received 1020 mg of Feraheme. She also received B12 1000 mcg. 08/09/2022 - 08/16/2022: Ms. West received 1020 mg of Feraheme. 08/07/2022: Bone marrow biopsy and aspiration? 08/13/2022: Hemoglobin 12.7, MCV 105, WBC 5.4, ANC 3.8, platelets 255,000, creatinine 0.5, iron saturation 36%, ferritin 793, B12 473. 12/14/2022: Hemoglobin 11.7, MCV 113, WBC 7.4, ANC 5.1, platelets 277,000, creatinine 0.7, her iron saturation is 18%, and ferritin is 304. B12 is 432. 02/25/2023: Hemoglobin 12.5, MCV 109, WBC 5.7, ANC 4.0, platelets 238,000, iron saturation 16%, ferritin 147. 05/27/2023: Hemoglobin 8.3, MCV 116, WBC 6.3, ANC 4.5, platelets 329,000, iron saturation 24%, ferritin 237 06/13/2023: Bone marrow biopsy 06/13/2023: Hemoglobin 9.4, MCV 115, WBC 6.3, ANC 4.3, platelets 271,000, creatinine 0.5, iron saturation is 20%, and ferritin is 126. B12 is 377. 07/29/2023-09/04/2023: Feraheme x 4 IV infusions, 2 g total. 09/09/2023: EGD 09/09/2023: EGD pathology report 09/17/2023: Hemoglobin 11.7, MCV 112, ANC 5.2, WBC 6.9, platelets 247,000, iron saturation 19%, ferritin 511, B12 is 595, folate is 13.51 10/04/2023: Right breast biopsy 11/18/2023: Hemoglobin 9.4, MCV 116, ANC 3.7, WBC 5.8, platelets 205,000, iron saturation 15%, ferritin 238, B12 is 435, folate 11.28 02/10/2024: Hemoglobin 11.9, MCV 113, ANC 5.4, WBC 7.7, platelets 204,000, iron saturation 22%, ferritin 497, B12 is 859 OTHER MEDICAL HISTORY/CONDITIONS: FAMILY HISTORY: ?Clone Family Hx? SOCIAL HISTORY: [employer] HISTORY: MEDICATIONS: 1. Advair HFA - 2 Puff(s) Twice a Day 2. Ambien - 5 mg 1 tab Daily 3. atorvastatin - 40 mg 1 tab Daily 4. Dulcolax - 100 mg Twice a Day 5. gabapentin - 300 mg Three times a day 6. losartan - 50 mg 1 tab Daily 7. metoprolol succinate - 100 mg 1 tab Daily 8. [place] - 10 mg Every 6 Hours?Palabra Meds? Medications Last Reconciled by Luisa Johnson MA on 07/02/2024 ALLERGIES: No Known Drug Allergies REVIEW OF SYSTEMS: A complete 14-point review of systems was performed and is negative except as noted in interval history. PHYSICAL EXAMINATION:?[facility] PE? VITAL SIGNS: Temperature?99.3, B/P?133/77, Oxygen?Saturation?97% Weight?100?lbs (Change?since?06/29/24:?5.4?lbs) PAIN: 0 - No pain GENERAL APPEARANCE: Thin, in no apparent distress, appropriately interactive. HEENT: Normocephalic, normal conjunctiva, no scleral icterus, normal hearing, lips without lesions, neck normal range of motion. CARDIOVASCULAR: Not assessed. PULMONARY: Normal respiratory effort, no respiratory distress or use of accessory muscles, speaking in full sentences, no tachypnea. EXTREMITIES: No cyanosis. SKIN: Normal skin appearance. NEUROLOGIC: Alert and oriented x4. PSHYCHIATRIC: Appropriate affect, mood normal, behavior normal, intact thought and speech. LABORATORY DATA: I have personally reviewed and interpreted each of the patient?s relevant lab tests, abnormal findings are below: Date 12/01/1506/10/24 06/19/24 ??WHITE?BLOOD?COUNT?(Thou/mm3) 4.6 ? 4.0 ??RED?BLOOD?COUNT?(Miln/mm3) 3.24?L ? 3.15?L ??HEMOGLOBIN?(gm/dl) 11.7?L ? 11.2?L ??HEMATOCRIT?(%) 37.3 ? 35.6?L ??PLATELET?COUNT?(Thou/mm3) 267 ? 206 ??NEUTROPHILS?%,?AUTO?(%) 61 ? 61 ??LYMPH?%,?AUTO?(%) 27 ? 28 ??NEUTROPHILS,?AUTO?(Thou/mm3) 2.8 ? 2.4 ??GLUCOSE,RANDOM?(mg/dL) ? 88 96 ??BLOOD?UREA?NITROGEN?(mg/dL) ? 21 15 ??CREATININE?(mg/dL) ? 0.80 0.50?L ??SODIUM?(mmol/L) ? 139 141 ??POTASSIUM?(mmol/L) ? 4.4 5.0 ??CHLORIDE?(mmol/L) ? 103 105 ??CrCl?(CandG)?(ml/min) ? 49.93 77.11 ??AST/SGOT?(Unit/L) ? 31 20 ??ALT/SGPT?(Unit/L) ? 52?H 23 ??ALKALINE?PHOSPHATASE?(Unit/L) ? 79 68 ??BILIRUBIN,?TOTAL?(mg/dL) ? 0.2?L <?0.2?L ??PROTEIN?TOTAL?(gm/dl) ? 5.3?L 4.8?L ??ALBUMIN,?SERUM?(gm/dl) ? 3.6 3.1?L ??GLOBULIN?(gm/dl) ? 1.7?L 1.7?L ??ALBUMIN/GLOBULIN?RATIO ? 2.1 1.8 ??CALCIUM,?SERUM?(mg/dL) ? 8.7 8.5 ??CALCIUM?SERUM?(CORRECTED)?(mg/dL) ? 9.0 9.2 ASSESSMENT/PLAN:?Sherrill Bloom Assessment/Plan? 1. History of iron deficiency anemia. History of B12 deficiency, started B12 on 06/08/2024. Hx of partial gastrectomy twice due to peptic ulcer disease (1997, 1999). Bone marrow biopsy negative (06/13/2023, 08/07/2022, 10/20/2019). Previously bone marrow biopsies have been ordered for anemia and macrocytosis. Oozing gastric ulcers, EGD, pathology negative for malignancy 09/09/2023). s/p multiple Feraheme infusions last time on 06/08/2024, pending 2 additional IV Feraheme infusions. Unable to tolerate ferrous sulfate due to severe constipation. CT of abdomen and pelvis was ordered due to previous complaint of epigastric pain, nausea, decreased appetite. No pain today. CT showed mild enlargement of the bile duct HIDA scan recommend, did not show spleen enlarged, 03/05/2024 Ultrasound of the liver done 05/07/2024 showed abnormally enlarged common bile duct 14 mm, consider MRCP. MRCP recommended ERCP to exclude malignant stricture of the distal common bile duct, 06/10/2024. Pending referral to GI for ERCP and to follow-up for patient's complaint heartburn nausea and weight loss, patient lost 11 lb from November 2023. Previously, bone marrow biopsies had been ordered due to patient's anemia and macrocytosis. We do not have a recent CBC. Labs from 05/05/2024 showed hemoglobin 11.5, MCV 111, reticulocyte count 1.9, WBC was 5.6, platelet count 249,000, creatinine 0.6, EGFR>60, calcium 9.3. Most likely macrocytosis secondary to increased reticulocyte production. Patient reports a couple of episodes of dark stool about a week ago, no recent dark stools. Patient given strict ER precautions CBC every 2 weeks 2. Breast cancer screening Bilateral breast ultrasound, BI-RADS Category 3 probably benign findings, repeat bilateral breast ultrasound in 6 months, 01/27/2024. Bilateral mammogram screening showed benign findings, recommended bilateral ultrasound in 12/24/2023. Right breast biopsy showed benign fibroadenomas, negative for carcinoma, 10/04/2023 Ordered bilateral breast ultrasound follow-up for 07/2024 3. Patient reports PCP ordered PTH hormone level, patient requesting we give her the results, PTH is 96.1. Patient advised to follow-up with PCP as soon as possible for result Referral to endocrinology. Brett Win presents for follow-up of anemia and macrocytosis, with previous negative bone marrow biopsy for cancer. Anemia with macrocytosis Assessment: Patient has been followed for anemia with macrocytosis. A bone marrow biopsy performed last year was negative for cancer. Recent blood tests also showed no evidence of cancer. The etiology of the macrocytosis remains unclear. Further investigation is warranted to determine the cause of the enlarged cell size and anemia. Plan: - Order blood tests in 6 weeks: - B12 level - Folic acid level - Iron level - Erythropoietin - LDH - Haptoglobin - Patient to complete blood work 2 weeks before next appointment - Follow-up appointment in 2 months to review results Cholelithiasis and choledocholithiasis Assessment: Incidental finding of gallstones in the gallbladder and bile duct noted on imaging. This condition requires further evaluation and management by a corset maker. Plan: - Refer to gastroenterology for evaluation and management of gallstones and bile duct stones - operations administrative assistant to provide referral paperwork to patient ORDERS: Order # Description [id number] MD Follow Up 2 Months + Comprehensive Metabolic Panel - 12 + CBC with Auto Diff [id number] Assay Of Haptoglobin Quant + Lactate Dehydrogenase (LDH) + Ferritin + Vitamin B- 12 + Folic Acid; Serum + Iron Panel + Reticulocyte Count [id number] Serum Protein Electrophoresis + Serum Immunofixation Electrophoresis + Quant Immunoglobulins + Free kappa and lambda light chains plus ratio, quantitative + Beta-2 Microglobulin [id number] JANIYA - 2 Mutation Quant [id number] Erythropoieten Level RETURN TO CLINIC: 2 months Dear Brett win, Thank you for visiting today. Here is a summary of the mills instructions: Referrals: - Go to a corset maker for evaluation of gallstones in your gallbladder and bile duct - operations administrative assistant will provide referral paperwork Lab Tests: - Complete blood work in 6 weeks, including: - B12 level - Folic acid level - Iron level - Erythropoietin - LDH - Haptoglobin Follow-up: - Return for follow-up appointment in 2 months - Complete blood work about 2 weeks before the appointment Please reach out if you have any questions or concerns. Best Regards, beata bloom, Oncology BILLING AND COMPLIANCE: I reviewed external records from providers outside my specialty as summarized above. I spent a total of 50 minutes on this patient?s care on the day of their visit excluding time spent related to any billed procedures. This time includes time spent with the patient as well as time spent documenting in the medical record, reviewing patients records and tests, obtaining history, placing orders, communicating with other healthcare professionals, counseling the patient, family or caregiver, and/or care coordination for the diagnoses above. Electronically Signed by: Beata Bloom MD T: 2:01 PM CC: Kenn?Ivette,? PCP: Wilfrido Ramírez Referring: Wilfrido Ramírez This document was completed utilizing speech recognition software. Grammatical errors, random word insertions, pronoun errors, and incomplete sentences are an occasional consequence of this system due to software limitations, ambient noise, and hardware issues. Any formal questions or concerns about the content, text or information contained within the body of this dictation should be directly addressed to the provider for clarification.
== END 2024-07-22 23:59 | disposition home or self-care (01) ==
LOC: SCTC 14:33
PROVIDERS: PCP Physician Assistant; Referring Provider Physician Assistant; Visit Provider Internal Medicine Hematology & Oncology
DX: D50.9 Iron deficiency anemia, unspecified (principal); E53.8 Deficiency of other specified B group vitamins; D75.89 Other specified diseases of blood and blood-forming organs; Z90.3 Acquired absence of stomach [part of]; Z87.11 Personal history of peptic ulcer disease
CPT/HCPCS: 96365; 96372; 99213; A4216; J3420; J7040; J7050; Q0138; G0463

== ENCOUNTER → 2024-07-09 | Outpatient (CLI) | payer MEDICARE, MEDICAID, SELFPAY ==
--- NOTE | 2024-07-09 12:06 | XR_ITS ---
Examination: Abdomen AP single view Technique: AP portable supine abdomen, single view Exam date and time: July 09, 2024 1248 hours INDICATIONS: Umbilical pain one month FINDINGS: Moderate to large amounts of stool throughout colon No obstruction No free air. Surgical clips upper right abdomen and in the pelvis as well as left abdomen IMPRESSION: Moderate to large amounts of stool throughout the colon
[2024-07-09 13:29] LABS: Misc Send Out* See Sep Rpt
[2024-07-09 14:37] LABS: Basophils % (Auto) 1 % (0-2.5); Eosinophils # (Auto) 0.1 Thou/mm3 (0.0-0.5); Eosinophils % (Auto) 1 % (0-10); Hematocrit 40.9 % (36.0-46.0); Hemoglobin 12.9 g/dL (12.0-16.0); Immature Granulocytes % (Auto) 1 % (0-0); Immature Granulocytes Auto 0.07 Thou/mm3 (0.00-0.00); Lymphocytes # (Auto) 1.3 Thou/mm3 (1.0-4.8); Lymphocytes % (Auto) 24 % (10-50); Mean Corpuscular HGB Conc 31.5 g/dl (31.0-37.0); Mean Corpuscular Hemoglobin 35.1 pg (25.0-35.0); Mean Corpuscular Volume 111 fL (80-100); Monocytes # (Auto) 0.4 Thou/mm3 (0.0-0.8); Monocytes % (Auto) 7 % (0-12); Neutrophils # (Auto) 3.5 Thou/mm3 (1.8-7.7); Neutrophils % (Auto) 65 % (37-80); Nucleated Red Blood Cell % 0 /100 WBC (0); Platelet Count 288 Thou/mm3 (140-440); RDW Standard Deviation 54.8 fL (36.4-46.3); Red Blood Count 3.67 Miln/mm3 (4.00-5.20); White Blood Count 5.3 Thou/mm3 (3.6-11.0)
[2024-07-09 14:42] LABS: Alanine Aminotransferase 218 U/L (10-49); Albumin/Globulin Ratio 1.9 (1.2-2.2); Alkaline Phosphatase 141 U/L (46-116); Anion Gap 7 (7-16); Aspartate Amino Transferase 163 U/L (0-34); BUN/Creatinine Ratio 20 Ratio (12-20); Bilirubin,Total 0.2 mg/dL (0.3-1.2); Blood Urea Nitrogen 14 mg/dL (9-23); Calcium 8.7 mg/dL (8.3-10.6); Calcium (Corrected) 8.7 mg/dL (8.5-10.1); Carbon Dioxide 28.3 mMol/L (20.0-31.0); Chloride 104 mMol/L (98-107); Creatinine (Component) 0.7 mg/dL (0.6-1.3); Globulin 2.1 gm/dL (2.3-3.5); Glucose 108 mg/dL (74-106); Osmolality,Calculated 279 (275-295); Potassium 4.9 mMol/L (3.4-5.1); Sodium 139 mMol/L (136-145); Total Protein 6.1 gm/dL (5.7-8.2); eGFR > 60 See Note
[2024-07-09 16:33] LABS: Sed Rate (ESR) 6 mm/hr (0-30)
[2024-07-20 06:42] LABS: Immunoglobulin A 158 mg/dL (70-320); hs-CRP* 1.7 mg/L; tTG Ab, IgA <1.0 U/mL
== END | disposition home or self-care (01) ==
LOC: CDIM 12:09 → COPL 07-10 13:46
PROVIDERS: PCP Physician Assistant; Referring Provider Specialist; Visit Provider Radiology Diagnostic Radiology
DX: K59.00 Constipation, unspecified (principal); R19.7 Diarrhea, unspecified
CPT/HCPCS: 36415; 74018; 80053; 82784; 85025; 85652; 86141; 86364

== ENCOUNTER → 2024-07-10 | Outpatient (CLI) | payer MEDICARE, MEDICAID, SELFPAY ==
[2024-07-20 06:42] LABS: Calprotectin, Stool* 383 mcg/g
== END | disposition home or self-care (01) ==
LOC: SLDO 13:52
PROVIDERS: Referring Provider Specialist; Visit Provider Specialist
DX: R19.7 Diarrhea, unspecified (principal)
CPT/HCPCS: 83993; 87493

== ENCOUNTER → 2024-07-23 | Outpatient (CLI) | payer MEDICARE, MEDICAID, SELFPAY ==
[2024-07-30 06:56] LABS: Calprotectin, Stool* 1500 mcg/g
== END | disposition home or self-care (01) ==
LOC: SLDO 17:16
PROVIDERS: Referring Provider Specialist; Visit Provider Specialist
DX: R19.7 Diarrhea, unspecified (principal)
CPT/HCPCS: 83993

== ENCOUNTER 2024-08-03 14:54 | Outpatient (RCR) | payer MEDICARE, MEDICAID, SELFPAY | END 2024-08-22 23:59 | disposition home or self-care (01) | LOC: SCTC 14:54 | PROVIDERS: PCP Physician Assistant; Referring Provider Internal Medicine Hematology & Oncology; Visit Provider Internal Medicine Hematology & Oncology | DX: E53.8 Deficiency of other specified B group vitamins (principal); D50.9 Iron deficiency anemia, unspecified | CPT/HCPCS: 96372; J3420 ==

== ENCOUNTER 2024-08-05 08:10 | Day surgery (SDC) | payer MEDICARE, MEDICAID, SELFPAY ==
[2024-08-04 13:49] VITALS: BMI 17.2
[2024-08-05] VITALS (9 sets, daily range): BP systolic 94–147; BP diastolic 52–75; PULSE 59–71; RESP 13–22; TEMP 36.2–36.7; O2SAT 95–100; BMI 17.4
[2024-08-05] MEDS: BENZOCAINE 20% (Hurricaine) SPRAY 1 DOSE TOP (09:21)
[2024-08-05] MEDS: SODIUM CHLORIDE 0.9% 500 ML 500 ML 20 ML IV (09:22)
[2024-08-05] MEDS: DiphenhydrAMINE INJ 50 MG/ML VIAL 25 MG IV (09:24)
[2024-08-05] MEDS: fentaNYL CIT INJ 50 mCg/ML AMP 2ML (ASD USE ONLY) IV (09:24)
[2024-08-05] MEDS: MIDAZOLAM INJ 1 MG/ML VIAL 2 ML (ASD USE ONLY) 2 MG IV (09:24)
--- NOTE | 2024-08-05 10:58 | SUR.PHASEII ---
0941: Pt received for recovery. Report from Alejandra DOTSON. Pt sleepy, easily aroused. Resp even, unlabored. Pt BP elevated, but is within pre-procedure baseline. Other VS stable. Denies pain. 1013: Pt more awake, alert. VS stable. Denies pain. Sitting up tolerating po fluids with no difficulty swallowing and no n/v. 1028: Pt fully awake, oriented x3. Pt assisted to restroom. Ambulation steady. Pt and daughter stated understanding of discharge instructions. Pt discharged from [facility] in stable condition.
== END 2024-08-05 10:28 | disposition home or self-care (01) ==
PROVIDERS: PCP Physician Assistant; Referring Provider Specialist; Visit Provider Specialist
PROC: (CPT 43239; principal; 2024-08-05 08:30)
DX: K20.90 Esophagitis, unspecified without bleeding (principal); K31.1 Adult hypertrophic pyloric stenosis; K91.89 Other postprocedural complications and disorders of digestive system; Z87.19 Personal history of other diseases of the digestive system; I25.10 Atherosclerotic heart disease of native coronary artery without angina pectoris; Z95.5 Presence of coronary angioplasty implant and graft; I10 Essential (primary) hypertension; Z79.899 Other long term (current) drug therapy
CPT/HCPCS: 43235; C1725; J1200; J2250; J3010; J7040; A9270

== ENCOUNTER → 2024-08-12 | Outpatient (CLI) | payer MEDICARE, MEDICAID, SELFPAY ==
--- NOTE | 2024-08-12 11:30 | XR_ITS ---
Examination: Breast ultrasound complete, bilateral Date and time of exam: August 12, 2024 1132 hours Comparison January 27, 2024 INDICATIONS: Right breast 10:00 nodule versus glandular tissue 7 x 5 mm left breast retroareolar nodule 10 by 8mm 2:00 nodule 8 x 7 mm Technique: Real-time grayscale ultrasonographic imaging bilateral breasts, including all 4 quadrants as well as nipple retroareolar and axillary regions. Findings: Sonographic images right breast 10:00 nodule circumscribed 9 x 5 mm Sonographic images left breast Retroareolar circumscribed nodule 9 x 9 mm IMPRESSION: BI-RADS Category 3: Probably benign findings Recommend continued 6 month follow-up bilateral breast sonography
--- NOTE | 2024-08-12 12:17 | XR_ITS ---
Examination: Abdomen sonogram, complete Date and time of exam: August 12, 2024 1227 hours INDICATIONS: Mid abdominal pain 2 months, MRCP June 10, 2024 extra hepatic biliary tract dilatation with abrupt termination of the common bile duct, 4 mm stone in the distal common bile duct. Technique: Multiple real-time grayscale transabdominal sonographic images of the abdomen have been obtained. Findings: Absent gallbladder Common bile duct 0.8 cm no stones Pancreatic head 2.8 cm Aorta not enlarged Liver 16 cm smooth contour no focal liver lesions Normal hepatopedal portal venous flow Patent IVC Right kidney 8.9 cm cortex 1.7 cm Left kidney 8.4 cm cortex 1.3 cm Mild bilateral renal parenchymal scar formation Spleen 10.7 cm IMPRESSION: Common bile duct 0.8 cm no stones Small kidneys with bilateral renal cortical thinning Mild bilateral renal parenchymal scar formation
== END | disposition home or self-care (01) ==
PROVIDERS: PCP Nurse Practitioner Family; Referring Provider Nurse Practitioner Family; Visit Provider Nurse Practitioner Family
DX: R92.8 Other abnormal and inconclusive findings on diagnostic imaging of breast (principal); N28.89 Other specified disorders of kidney and ureter
CPT/HCPCS: 76641; 76700

== ENCOUNTER → 2024-08-31 | Outpatient (CLI) | payer MEDICARE, MEDICAID, SELFPAY ==
[2024-08-31 15:36] LABS: Misc Send Out* See Sep Rpt
[2024-08-31 16:06] LABS: Basophils % (Auto) 0 % (0-2.5); Eosinophils # (Auto) 0.1 Thou/mm3 (0.0-0.5); Eosinophils % (Auto) 1 % (0-10); Hematocrit 33.4 % (36.0-46.0); Hemoglobin 10.7 g/dL (12.0-16.0); Immature Granulocytes % (Auto) 2 % (0-0); Immature Granulocytes Auto 0.11 Thou/mm3 (0.00-0.00); Immature Reticulocyte Fraction 16.4 % (3.0-15.9); Lymphocytes # (Auto) 1.1 Thou/mm3 (1.0-4.8); Lymphocytes % (Auto) 22 % (10-50); Mean Corpuscular Hemoglobin 36.5 pg (25.0-35.0); Mean Corpuscular Volume 114 fL (80-100); Monocytes # (Auto) 0.3 Thou/mm3 (0.0-0.8); Monocytes % (Auto) 6 % (0-12); Neutrophils # (Auto) 3.4 Thou/mm3 (1.8-7.7); Neutrophils % (Auto) 68 % (37-80); Nucleated Red Blood Cell % 0 /100 WBC (0); Platelet Count 216 Thou/mm3 (140-440); RDW Standard Deviation 54.4 fL (36.4-46.3); Red Blood Count 2.93 Miln/mm3 (4.00-5.20); Reticulocyte Absolute Auto 88.8 Biln/L (25.0-75.0); Reticulocyte Hgb Content 38.8 pg (28.0-35.0)
[2024-08-31 16:22] LABS: Alanine Aminotransferase 46 U/L (10-49); Albumin, Serum 3.3 gm/dL (3.4-4.8); Albumin/Globulin Ratio 2.1 (1.2-2.2); Alkaline Phosphatase 47 U/L (46-116); Anion Gap 11 (7-16); BUN/Creatinine Ratio 17 Ratio (12-20); Bilirubin,Total 0.2 mg/dL (0.3-1.2); Blood Urea Nitrogen 15 mg/dL (9-23); Calcium 7.7 mg/dL (8.3-10.6); Calcium (Corrected) 8.3 mg/dL (8.5-10.1); Chloride 115 mMol/L (98-107); Creatinine (Component) 0.9 mg/dL (0.6-1.3); Globulin 1.6 gm/dL (2.3-3.5); Glucose 95 mg/dL (74-106); LDH (Lactate Dehydrogenase) 203 U/L (120-246); Osmolality,Calculated 295 (275-295); Sodium 148 mMol/L (136-145); Total Protein 4.9 gm/dL (5.7-8.2); eGFR > 60 See Note
[2024-08-31 16:40] LABS: Ferritin 378 ng/mL (7.3-270.7); Iron 77 mcg/dL (50-170); Percent Iron Saturation 30 % (20-55); Total Iron Binding Capacity 254 mcg/dL (250-425); Unsaturated Iron Binding 177 (225-295)
[2024-08-31 16:44] LABS: Vitamin B12 > 2000 pg/mL (211-911)
[2024-09-01 02:44] LABS: Path Review Blood Smear Sent to Pathologist
[2024-09-07 17:50] LABS: Alpha-1-Globulin 0.3 g/dL (0.2-0.3); Alpha-2-Globulin 0.6 g/dL (0.5-0.9); Beta-1-Globulin 0.3 g/dL (0.4-0.6); Beta-2-globulin 0.2 g/dL (0.2-0.5); Gamma Globulin 0.5 g/dL (0.8-1.7); Immunoglobulin A 121 mg/dL (70-320); Immunoglobulin G 505 mg/dL (600-1540); Kappa Light Chain, Free 29.9 mg/L (3.3-19.4); Lambda Light Chain, Free 35.5 mg/L (5.7-26.3)
[2024-09-08 06:56] LABS: Beta 2 Microglobulin 2.68 mg/L (< OR = 2.51); Erythropoietin (EPO)* 21.8 mIU/mL (2.6-18.5); Haptoglobin* 145 mg/dL (43-212); Immunoglobulin M 52 mg/dL (50-300); Kappa/Lambda, Free Ratio 0.84 (0.26-1.65)
== END | disposition home or self-care (01) ==
PROVIDERS: PCP Physician Assistant; Referring Provider Internal Medicine Hematology & Oncology
DX: D50.9 Iron deficiency anemia, unspecified (principal); E21.3 Hyperparathyroidism, unspecified; E55.9 Vitamin D deficiency, unspecified; G47.00 Insomnia, unspecified; G60.9 Hereditary and idiopathic neuropathy, unspecified; I10 Essential (primary) hypertension; J45.909 Unspecified asthma, uncomplicated; K25.4 Chronic or unspecified gastric ulcer with hemorrhage; K25.9 Gastric ulcer, unspecified as acute or chronic, without hemorrhage or perforation; K90.9 Intestinal malabsorption, unspecified; M18.12 Unilateral primary osteoarthritis of first carpometacarpal joint, left hand; M19.011 Primary osteoarthritis, right shoulder; M25.511 Pain in right shoulder; M54.9 Dorsalgia, unspecified; M81.0 Age-related osteoporosis without current pathological fracture; Z13.820 Encounter for screening for osteoporosis; Z78.0 Asymptomatic menopausal state; Z79.899 Other long term (current) drug therapy
CPT/HCPCS: 36415; 80053; 82232; 82607; 82668; 82728; 82746; 82784; 83010; 83521; 83540; 83550; 83615; 83970; 84155; 84165; 85025; 85046; 86334

== ENCOUNTER 2024-09-03 14:41 | Outpatient (RCR) | payer MEDICARE, MEDICAID, SELFPAY ==
--- NOTE | 2024-09-13 23:25 | CTCFLWUP_ITS ---
Patient: AUDELIA WEST : 1955 Page 9 of 10 FOLLOW UP NOTE DATE OF SERVICE: 09/03/2024 NAME: AUDELIA WEST ACCOUNT: [id number] : 1955 AGE: 69 INTERVAL HISTORY: Subjective: Chief Complaint Fatigue, persistent anemia, low calcium levels, abnormal liver panel results History of Present Illness Audelia West presents for follow-up of ongoing anemia and liver concerns. She reports feeling a little tired but states she can manage this symptom. The patient's weight and appetite have remained stable since her last visit. She denies any changes in stool color. Audelia mentions that she has not been taking calcium supplements as recommended, despite having osteoporosis. Regarding her liver concerns, Audelia reports having undergone imaging at [facility], though she is unsure whether it was a CT scan or an MRI. She states that she has not yet seen the hepatobiliary specialist as previously recommended for evaluation of her narrowed bile duct. Audelia expresses some confusion about her appointments and referrals, indicating that she has not been to the hospital for the specialist consultation or the ERCP (Endoscopic Retrograde Cholangiopancreatography) procedure to examine her biliary ducts. She plans to call and schedule these appointments. Medications and Supplements - Calcium - Not taking as prescribed. - Vitamin B-12 - Levels reported as normal. - Iron - Levels reported as normal. Review of Systems General: Positive for fatigue. Objective: Laboratory, Imaging, and Diagnostic Test Results - B-12: Normal - Iron: Normal - Calcium: Very low - Hemoglobin: 10 g/dL (low, normal range up to 14 g/dL) - Liver panel: Abnormal - Ultrasound: Performed, results not specified - CT scan: Performed in May, negative except for liver - MRI: Performed, results not specified Medical History - Anemia - Macrocytosis (larger cell size) Surgical History - Bone marrow biopsy last year Medical History - Anemia - Macrocytosis (larger cell size) Surgical History - Bone marrow biopsy last year ONCOLOGY HISTORY: DIAGNOSIS: Iron deficiency anemia, unspecified [ICD10] D50.9 History of iron deficiency anemia. History of B12 deficiency, on monthly injections. Hx of partial gastrectomy twice due to peptic ulcer disease (1997, 1999). History of left intertrochanteric hip fracture (07/08/2022) Bone marrow biopsy negative, (06/13/2023 and 08/07/2022). Oozing gastric ulcers, EGD, (09/09/2023). s/p multiple Feraheme infusions DATE OF DIAGNOSIS: STAGE/TNM: TREATMENT HISTORY: Care?Plan Start?Date Cycle Day Intent FERAheme 08/05/2018 1 30 Palliative B?12 01/11/2022 1 28 Palliative VENOfer?200mg?IV?wkly?for?10?weeks 01/11/2022 1 70 Palliative FERAheme?4?doses 01/11/2022 1 28 Maintenance FERAheme?4?doses 07/29/2023 1 28 Palliative FERAheme?4?doses 11/21/2023 1 28 Palliative B?12?monthly 11/21/2023 1 28 Palliative FERAheme 06/08/2024 1 30 Palliative FERAheme 06/22/2024 1 30 Palliative HISTORY OF PRESENT ILLNESS: PREVIOUS NOTE: Patient unable to tolerate oral ferrous sulfate due to constipation. Last Feraheme infusion was on 12/19/2023. Patient follows up with Dr. Aguilar, GI. Patient denies bloody stools, chest pain vomiting fever. Ambulating well without any help. HISTORY: Audelia West is a 69-year-old [place] speaking female with following history. 1997: Patient had partial gastrectomy for peptic ulcer disease. 1999: Patient had repeat surgery on the stomach and according patient she had some more part of her stomach was removed due to recurrence of her peptic ulcer disease. Following that patient was getting repeat blood transfusions due to severe anemia. 2013: She was found to have iron deficiency anemia and received multiple IV iron infusions with significant improvement in her hemoglobin. More recently she was on Feraheme infusions. 08/13/2017: Patient received 510 mg of Feraheme. 01/02/2018: Patient had a bone marrow biopsy done which showed normocellular bone marrow with trilineage hematopoiesis and erythroid hyperplasia. No evidence of dysplasia, increased blasts, lymphoma or myeloma identified. As per the pathologist the prior bone marrow biopsy done on 05/06/2013 also showed a similar morphology. 08/05/2018?08/12/2018: Patient received 1020 mg of Feraheme. 02/12/2019: Hemoglobin 12.4, hematocrit 41, MCV 103. Iron saturation is 17% with a ferritin of 57. 09/09/2019: AST 536, ALT 576. T bili 0.3 iron saturation 12% with ferritin 977. 09/15/2019: AST 22, ALT 77. 09/28/2019?10/05/2019: Patient received 1020 mg of Feraheme. 04/25/2020: Hemoglobin 12.3, MCV 94, WBC 5.7, platelets 316,000. Iron saturation 12%, ferritin 35. 10/12/2020?10/18/2020: Patient received 1020 mg of Feraheme. 05/29/2021: WBC 6.9, hemoglobin 10.5, MCV 104, platelets 416,000, iron saturation 19%, ferritin 66, B12 381, folate 11.8. 06/29/2021: EGD? 07/27/2021: Repeat EGD? 09/11/2021: WBC 11.4, ANC 5.6, bands 8%, metamyelocytes 5%, myelocytes 13%, promyelocytes 2%, hemoglobin 8.8, MCV 110, platelets 398,000. Iron saturation 32%, ferritin 239, B12 513, folate of 9.9, TSH 2.76. 10/19/2021: Bone marrow biopsy and aspiration 12/28/2021: Vitamin B12 205 (211?911) 06/25/2022 - 07/02/2022: Ms. West received 1020 mg of Feraheme. She also received B12 1000 mcg. 08/09/2022 - 08/16/2022: Ms. West received 1020 mg of Feraheme. 08/07/2022: Bone marrow biopsy and aspiration? 08/13/2022: Hemoglobin 12.7, MCV 105, WBC 5.4, ANC 3.8, platelets 255,000, creatinine 0.5, iron saturation 36%, ferritin 793, B12 473. 12/14/2022: Hemoglobin 11.7, MCV 113, WBC 7.4, ANC 5.1, platelets 277,000, creatinine 0.7, her iron saturation is 18%, and ferritin is 304. B12 is 432. 02/25/2023: Hemoglobin 12.5, MCV 109, WBC 5.7, ANC 4.0, platelets 238,000, iron saturation 16%, ferritin 147. 05/27/2023: Hemoglobin 8.3, MCV 116, WBC 6.3, ANC 4.5, platelets 329,000, iron saturation 24%, ferritin 237 06/13/2023: Bone marrow biopsy 06/13/2023: Hemoglobin 9.4, MCV 115, WBC 6.3, ANC 4.3, platelets 271,000, creatinine 0.5, iron saturation is 20%, and ferritin is 126. B12 is 377. 07/29/2023-09/04/2023: Feraheme x 4 IV infusions, 2 g total. 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 Advair HFA - 2 Puff(s) Twice a Day 2. Ambien - 5 mg 1 tab Daily 3. atorvastatin - 40 mg 1 tab Daily 4. Dulcolax - 100 mg Twice a Day 5. gabapentin - 300 mg Three times a day 6. losartan - 50 mg 1 tab Daily 7. metoprolol succinate - 100 mg 1 tab Daily 8. [place] - 10 mg Every 6 Hours Medications Last Reconciled by Jessenia Marina MD on 09/03/2024 ALLERGIES: No Known Drug Allergies REVIEW OF SYSTEMS: A complete 14-point review of systems was performed and is negative except as noted in interval history. PHYSICAL EXAMINATION: VITAL SIGNS: Temperature?99.1, B/P?113/71, Oxygen?Saturation?93% Weight?104?lbs (Change?since?08/31/24:?-0.4?lbs) PAIN: 0 - No pain ECOG Performance Status: 0 - Asymptomatic and fully active GENERAL APPEARANCE: Thin, in no apparent distress, appropriately interactive. HEENT: Normocephalic, normal conjunctiva, no scleral icterus, normal hearing, lips without lesions, neck normal range of motion. CARDIOVASCULAR: Not assessed. PULMONARY: Normal respiratory effort, no respiratory distress or use of accessory muscles, speaking in full sentences, no tachypnea. EXTREMITIES: No cyanosis. SKIN: Normal skin appearance. NEUROLOGIC: Alert and oriented x4. PSHYCHIATRIC: Appropriate affect, mood normal, behavior normal, intact thought and speech. LABORATORY DATA: I have personally reviewed and interpreted each of the patient?s relevant lab tests, abnormal findings are below: Date 08/31/24 ??GLUCOSE,RANDOM?(mg/dL) 95 ??BLOOD?UREA?NITROGEN?(mg/dL) 15 ??CREATININE?(mg/dL) 0.90 ??SODIUM?(mmol/L) 148?H ??POTASSIUM?(mmol/L) 5.0 ??CHLORIDE?(mmol/L) 115?H ??CrCl?(CandG)?(ml/min) 44.72 ??ALT/SGPT?(Unit/L) 46 ??ALKALINE?PHOSPHATASE?(Unit/L) 47 ??BILIRUBIN,?TOTAL?(mg/dL) 0.2?L ??PROTEIN?TOTAL?(gm/dl) 4.9?L ??ALBUMIN,?SERUM?(gm/dl) 3.3?L ??GLOBULIN?(gm/dl) 1.6?L ??ALBUMIN/GLOBULIN?RATIO 2.1 ??CALCIUM,?SERUM?(mg/dL) 7.7?L ??CALCIUM?SERUM?(CORRECTED)?(mg/dL) 8.3?L ??LDH,?TOTAL?(Unit/L) 203 ??RETICULOCYTE?ABSOLUTE?AUTO?(Biln/L) 88.8?H ??TOTAL?IRON?BINDING?CAP?(S*)?(mcg/dL) 254 ??UNBOUND?IBC?(mcg/dL) 177?L ASSESSMENT/PLAN: 1. History of iron deficiency anemia. History of B12 deficiency, started B12 on 06/08/2024. Hx of partial gastrectomy twice due to peptic ulcer disease (1997, 1999). Bone marrow biopsy negative (06/13/2023, 08/07/2022, 10/20/2019). Previously bone marrow biopsies have been ordered for anemia and macrocytosis. Oozing gastric ulcers, EGD, pathology negative for malignancy 09/09/2023). s/p multiple Feraheme infusions last time on 06/08/2024, pending 2 additional IV Feraheme infusions. Unable to tolerate ferrous sulfate due to severe constipation. CT of abdomen and pelvis was ordered due to previous complaint of epigastric pain, nausea, decreased appetite. No pain today. CT showed mild enlargement of the bile duct HIDA scan recommend, did not show spleen enlarged, 03/05/2024 Ultrasound of the liver done 05/07/2024 showed abnormally enlarged common bile duct 14 mm, consider MRCP. MRCP recommended ERCP to exclude malignant stricture of the distal common bile duct, 06/10/2024. Pending referral to GI for ERCP and to follow-up for patient's complaint heartburn nausea and weight loss, patient lost 11 lb from November 2023. Previously, bone marrow biopsies had been ordered due to patient's anemia and macrocytosis. We do not have a recent CBC. Labs from 05/05/2024 showed hemoglobin 11.5, MCV 111, reticulocyte count 1.9, WBC was 5.6, platelet count 249,000, creatinine 0.6, EGFR>60, calcium 9.3. Most likely macrocytosis secondary to increased reticulocyte production. Patient have no recent dark stools. Patient has persistent anemia with a current hemoglobin of 10 g/dL (normal range for women is typically 12-15.5 g/dL). Previous workup, including B12 and iron studies, has returned normal results. The etiology of the anemia remains unclear, necessitating further investigation. Plan: - Perform bone marrow biopsy to investigate the cause of persistent anemia - If bone marrow biopsy is inconclusive, proceed with whole-body scan to rule out other potential causes - Follow up in 4 weeks to review results 2. Breast cancer screening Bilateral breast ultrasound, BI-RADS Category 3 probably benign findings, repeat bilateral breast ultrasound in 6 months, 01/27/2024. Bilateral mammogram screening showed benign findings, recommended bilateral ultrasound in 12/24/2023. Right breast biopsy showed benign fibroadenomas, negative for carcinoma, 10/04/2023 Ordered bilateral breast ultrasound follow-up for 07/2024 3. Patient reports PCP ordered PTH hormone level, patient requesting we give her the results, PTH is 96.1. Patient advised to follow-up with PCP as soon as possible for result Referral to endocrinology. Brett Win presents for follow-up of anemia and macrocytosis, with previous negative bone marrow biopsy for cancer. Cholelithiasis and choledocholithiasis Assessment: Incidental finding of gallstones in the gallbladder and bile duct noted on imaging. This condition requires further evaluation and management by a network director. 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 Previous ultrasound and MRI/CT (patient unsure which) have been performed. MRCP has been recommended to further evaluate the gallbladder and biliary system. Plan: - Refer to hepatobiliary specialist for ERCP (Endoscopic Retrograde Cholangiopancreatography) to evaluate bile ducts and rule out any growths - Patient to schedule appointment with hepatobiliary specialist Hypocalcemia and Osteoporosis Assessment: Patient has very low calcium levels and a known diagnosis of osteoporosis. She reports not taking calcium supplements as recommended. Plan: - Start daily calcium supplementation with fatty foods - Educate patient on the importance of calcium supplementation for bone health ORDERS: Order # Description [id number] CBC + Comprehensive Metabolic Panel [id number] Lab Appointment [id number] CBC + Comprehensive Metabolic Panel [id number] Lab Appointment [id number] CBC + Comprehensive Metabolic Panel [id number] Lab Appointment [id number] CBC + Comprehensive Metabolic Panel [id number] Lab Appointment [id number] CBC + Comprehensive Metabolic Panel [id number] Lab Appointment RETURN TO CLINIC: BILLING AND COMPLIANCE: I reviewed external records from providers outside my specialty as summarized above. I spent a total of 50 minutes on this patient?s care on the day of their visit excluding time spent related to any billed procedures. This time includes time spent with the patient as well as time spent documenting in the medical record, reviewing patients records and tests, obtaining history, placing orders, communicating with other healthcare professionals, counseling the patient, family or caregiver, and/or care coordination for the diagnoses above. Electronically Signed by: {Object.Sanct_ID*PnP.NameFL@M}, {Object.Sanct_ID*PnP.Suffix@U} D: {Object.Sanct_Date} T: {Object.Sanct_Time} CC: Kenn?Ivette,? PCP: Moi Vital Referring: Moi Vital This document was completed utilizing speech recognition software. Grammatical errors, random word insertions, pronoun errors, and incomplete sentences are an occasional consequence of this system due to software limitations, ambient noise, and hardware issues. Any formal questions or concerns about the content, text or information contained within the body of this dictation should be directly addressed to the provider for clarification.
== END 2024-09-21 23:59 | disposition home or self-care (01) ==
LOC: SCTC 14:41
PROVIDERS: PCP Physician Assistant; Referring Provider Internal Medicine Hematology & Oncology; Visit Provider Internal Medicine Hematology & Oncology
DX: D50.9 Iron deficiency anemia, unspecified (principal); E53.8 Deficiency of other specified B group vitamins; Z90.3 Acquired absence of stomach [part of]; Z87.11 Personal history of peptic ulcer disease; K80.50 Calculus of bile duct without cholangitis or cholecystitis without obstruction; K80.20 Calculus of gallbladder without cholecystitis without obstruction
CPT/HCPCS: 36415; 80053; 82232; 82607; 82668; 82728; 82746; 82784; 83010; 83521; 83540; 83550; 83615; 83970; 84155; 84165; 85025; 85046; 86334; 96372; 99212; J3420; G0463

== ENCOUNTER → 2024-09-09 | Outpatient (CLI) | payer MEDICARE, MEDICAID, SELFPAY ==
--- NOTE | 2024-09-09 13:52 | XR_ITS ---
Examination: Bone survey 17 views TECHNIQUE: Mahogany left lateral skull, AP pelvis, lateral cervical spine, thoracic spine, lumbar spine AP right and left humerus AP right and left forearm, AP right and left femur, AP right and left tibiofibular, PA chest single view 17 views Date and time: September 09, 2024 1420 hours INDICATIONS: Abdominal pain nausea and diagnosis anemia and CT scan abdomen and pelvis is irregular 2023 FINDINGS: Moderate osteopenia No osteolytic cranial vault lesions Hips bones of the pelvis intact, you have fractured left hip Advanced degenerative disc disease C4-C5, C5-C6 Intact odontoid Intact cervical thoracic and lumbar vertebral bodies No osteolytic lesions involving the humerus forearm or femur bilaterally Marginated cystic contains, small cyst in the proximal tibia 7 mm Normal heart size Lungs are clear IMPRESSION: No findings of osteolytic metastatic disease or round cell tumor involvement such as multiple myeloma
== END | disposition home or self-care (01) ==
PROVIDERS: PCP Physician Assistant; Referring Provider Internal Medicine Hematology & Oncology; Visit Provider Internal Medicine Hematology & Oncology
DX: D64.9 Anemia, unspecified (principal); D50.9 Iron deficiency anemia, unspecified
CPT/HCPCS: 77074

== ENCOUNTER → 2024-09-16 | Outpatient (CLI) | payer MEDICARE, MEDICAID, SELFPAY ==
[2024-09-16 12:29] LABS: Basophils # (Auto) 0.1 Thou/mm3 (0.0-0.2); Basophils % (Auto) 1 % (0-2.5); Eosinophils # (Auto) 0.1 Thou/mm3 (0.0-0.5); Eosinophils % (Auto) 1 % (0-10); Hematocrit 36.5 % (36.0-46.0); Hemoglobin 11.6 g/dL (12.0-16.0); Immature Granulocytes % (Auto) 6 % (0-0); Immature Granulocytes Auto 0.39 Thou/mm3 (0.00-0.00); Lymphocytes # (Auto) 1.7 Thou/mm3 (1.0-4.8); Lymphocytes % (Auto) 27 % (10-50); Mean Corpuscular HGB Conc 31.8 g/dl (31.0-37.0); Mean Corpuscular Hemoglobin 36.9 pg (25.0-35.0); Mean Corpuscular Volume 116 fL (80-100); Monocytes # (Auto) 0.5 Thou/mm3 (0.0-0.8); Monocytes % (Auto) 8 % (0-12); Neutrophils # (Auto) 3.6 Thou/mm3 (1.8-7.7); Neutrophils % (Auto) 57 % (37-80); Nucleated Red Blood Cell % 0 /100 WBC (0); Platelet Count 297 Thou/mm3 (140-440); RDW Standard Deviation 53.6 fL (36.4-46.3); Red Blood Count 3.14 Miln/mm3 (4.00-5.20); White Blood Count 6.2 Thou/mm3 (3.6-11.0)
[2024-09-16 12:41] LABS: Alanine Aminotransferase 41 U/L (10-49); Albumin, Serum 3.4 gm/dL (3.4-4.8); Albumin/Globulin Ratio 1.9 (1.2-2.2); Alkaline Phosphatase 84 U/L (46-116); Anion Gap 5 (7-16); Aspartate Amino Transferase 32 U/L (0-34); BUN/Creatinine Ratio 25 Ratio (12-20); Bilirubin,Total 0.2 mg/dL (0.3-1.2); Blood Urea Nitrogen 15 mg/dL (9-23); Calcium 8.3 mg/dL (8.3-10.6); Calcium (Corrected) 8.8 mg/dL (8.5-10.1); Carbon Dioxide 28.9 mMol/L (20.0-31.0); Chloride 107 mMol/L (98-107); Creatinine (Component) 0.6 mg/dL (0.6-1.3); Globulin 1.8 gm/dL (2.3-3.5); Glucose 93 mg/dL (74-106); Osmolality,Calculated 282 (275-295); Potassium 4.5 mMol/L (3.4-5.1); Sodium 141 mMol/L (136-145); Total Protein 5.2 gm/dL (5.7-8.2); eGFR > 60 See Note
[2024-09-16 12:54] LABS: INR 0.9 (0.9-1.3); Partial Thromboplastin Time 28.6 Seconds (22.0-36.0); Prothrombin Time 10.1 Seconds (9.0-12.2)
== END | disposition home or self-care (01) ==
LOC: COPL 11:51
PROVIDERS: PCP Physician Assistant
DX: I77.9 Disorder of arteries and arterioles, unspecified (principal); D64.9 Anemia, unspecified; E78.5 Hyperlipidemia, unspecified; Z95.5 Presence of coronary angioplasty implant and graft; I10 Essential (primary) hypertension; Z79.02 Long term (current) use of antithrombotics/antiplatelets
CPT/HCPCS: 36415; 80053; 85025; 85610; 85730

== ENCOUNTER → 2024-10-19 | Outpatient (CLI) | payer MEDICARE, MEDICAID, SELFPAY ==
[2024-10-19 13:41] LABS: Basophils # (Auto) 0.0 Thou/mm3 (0.0-0.2); Basophils % (Auto) 0 % (0-2.5); Eosinophils # (Auto) 0.1 Thou/mm3 (0.0-0.5); Eosinophils % (Auto) 1 % (0-10); Hematocrit 37.0 % (36.0-46.0); Hemoglobin 11.6 g/dL (12.0-16.0); Immature Granulocytes Auto 0.04 Thou/mm3 (0.00-0.00); Lymphocytes # (Auto) 0.8 Thou/mm3 (1.0-4.8); Lymphocytes % (Auto) 10 % (10-50); Mean Corpuscular HGB Conc 31.4 g/dl (31.0-37.0); Mean Corpuscular Hemoglobin 35.0 pg (25.0-35.0); Mean Corpuscular Volume 112 fL (80-100); Monocytes # (Auto) 0.6 Thou/mm3 (0.0-0.8); Monocytes % (Auto) 7 % (0-12); Neutrophils # (Auto) 6.3 Thou/mm3 (1.8-7.7); Neutrophils % (Auto) 81 % (37-80); Nucleated Red Blood Cell # 0.00 Thou/mm3 (0.00-0.00); Nucleated Red Blood Cell % 0 /100 WBC (0); Platelet Count 227 Thou/mm3 (140-440); RDW Standard Deviation 49.5 fL (36.4-46.3); Red Blood Count 3.31 Miln/mm3 (4.00-5.20); White Blood Count 7.8 Thou/mm3 (3.6-11.0)
[2024-10-19 15:04] LABS: Alanine Aminotransferase 24 U/L (10-49); Albumin, Serum 3.2 gm/dL (3.4-4.8); Albumin/Globulin Ratio 1.7 (1.2-2.2); Alkaline Phosphatase 80 U/L (46-116); Anion Gap 7 (7-16); Aspartate Amino Transferase 31 U/L (0-34); BUN/Creatinine Ratio 26 Ratio (12-20); Bilirubin,Total < 0.2 mg/dL (0.3-1.2); Blood Urea Nitrogen 26 mg/dL (9-23); Calcium 8.5 mg/dL (8.3-10.6); Calcium (Corrected) 9.1 mg/dL (8.5-10.1); Carbon Dioxide 26.7 mMol/L (20.0-31.0); Chloride 104 mMol/L (98-107); Creatinine (Component) 1.0 mg/dL (0.6-1.3); Globulin 1.9 gm/dL (2.3-3.5); Glucose 101 mg/dL (74-106); Osmolality,Calculated 280 (275-295); Potassium 4.5 mMol/L (3.4-5.1); Sodium 138 mMol/L (136-145); Total Protein 5.1 gm/dL (5.7-8.2); eGFR > 60 See Note
== END | disposition home or self-care (01) ==
PROVIDERS: PCP Physician Assistant; Referring Provider Nurse Practitioner Family; Visit Provider Nurse Practitioner Family
DX: D50.9 Iron deficiency anemia, unspecified (principal)
CPT/HCPCS: 36415; 80053; 85025

== ENCOUNTER 2024-10-22 14:31 | Outpatient (RCR) | payer MEDICARE, MEDICAID, SELFPAY ==
--- NOTE | 2024-10-26 07:04 | CTCFLWUP_ITS ---
Patient: AUDELIA WEST : 1955 Page 8 of 11 FOLLOW UP NOTE DATE OF SERVICE: 10/22/2024 NAME: AUDELIA WEST ACCOUNT: [id number] : 1955 AGE: 69 INTERVAL HISTORY: Audelia, a female with history of gastric bypass, presented with fatigue and gastrointestinal issues. Past medical history includes B12 deficiency and iron deficiency. Extensive cancer workup was negative, but stool test showed significantly elevated calprotectin (1500), indicating intestinal inflammation. Recent labs showed high B12 (>2000) and iron levels. B12 injections were discontinued due to high levels. Patient was referred to [facility] gastroenterology for evaluation of intestinal inflammation and will follow up with oncology in 6 months. Chief Complaint Feeling so tired , ongoing gastrointestinal issues History of Present Illness Audelia West, a patient with a history of gastric bypass, presents for follow- up regarding ongoing fatigue and concerns about potential cancer. She reports feeling so tired despite previous evaluations that have ruled out cancer. The patient's primary complaint is persistent fatigue, though the exact onset and duration are not specified. She has undergone extensive testing, including a bone marrow biopsy, stomach evaluation, and bone scans, all of which have been negative for cancer. The patient was previously diagnosed with B12 deficiency and has been receiving B12 injections. She also mentions a history of iron deficiency, though recent lab results show high levels of both B12 and iron. Audelia has been experiencing gastrointestinal issues, as evidenced by a recent stool test showing elevated calprotectin levels, indicating significant inflammation in her intestines. This inflammation may be contributing to her symptoms, including her thin appearance and potential malabsorption issues. The patient reports having seen a icing machine operator, Dr. Aguilar, who recommended further specialist evaluation at [facility], though she has not yet received a call for this appointment. The patient's fatigue and gastrointestinal symptoms appear to be impacting her overall health and potentially her ability to maintain a healthy weight. She has been adherent to her B12 injection regimen, though there was a recent interruption due to high B12 levels detected in her bloodwork. Medications and Supplements - B12 injections - Given intravenously - Patient missed a recent dose due to high B12 levels - Multivitamin - Taken daily Review of Systems General: Positive for fatigue. Gastrointestinal: Positive for inability to absorb nutrients. Medications and Supplements - Calcium - Not taking as prescribed. - Vitamin B-12 - Levels reported as normal. - Iron - Levels reported as normal. Laboratory, Imaging, and Diagnostic Test Results - Date: 09/16/2024 - B12: >2000 (high) - Iron: High (specific value not provided) - Other vitamin levels: High (specific values not provided) - Bone marrow biopsy: Normal, no cancer detected - Stool test: - Calprotectin: 1500 (high) Medical History - Anemia - Macrocytosis (larger cell size) Surgical History - Bone marrow biopsy last year Medical History - Anemia - Macrocytosis (larger cell size) Surgical History - Bone marrow biopsy last year ONCOLOGY HISTORY:?CloneBlock Oncology Hx? DIAGNOSIS: Iron deficiency anemia, unspecified [ICD10] D50.9 History of iron deficiency anemia. History of B12 deficiency, on monthly injections. Hx of partial gastrectomy twice due to peptic ulcer disease (1997, 1999). History of left intertrochanteric hip fracture (07/08/2022) Bone marrow biopsy negative, (06/13/2023 and 08/07/2022). Oozing gastric ulcers, EGD, (09/09/2023). s/p multiple Feraheme infusions ?CloneBlock Dx? DATE OF DIAGNOSIS: STAGE/TNM: TREATMENT HISTORY: Care?Plan Start?Date Cycle Day Intent FERAheme 08/05/2018 1 30 Palliative B?12 01/11/2022 1 28 Palliative VENOfer?200mg?IV?wkly?for?10?weeks 01/11/2022 1 70 Palliative FERAheme?4?doses 01/11/2022 1 28 Maintenance FERAheme?4?doses 07/29/2023 1 28 Palliative FERAheme?4?doses 11/21/2023 1 28 Palliative B?12?monthly 11/21/2023 1 28 Palliative FERAheme 06/08/2024 1 30 Palliative FERAheme 06/22/2024 1 30 Palliative HISTORY OF PRESENT ILLNESS: PREVIOUS NOTE: Patient unable to tolerate oral ferrous sulfate due to constipation. Last Feraheme infusion was on 12/19/2023. Patient follows up with Dr. Aguilar, GI. Patient denies bloody stools, chest pain vomiting fever. Ambulating well without any help. HISTORY: Audelia West is a 69-year-old Tam[place] speaking female with following history. 1997: Patient had partial gastrectomy for peptic ulcer disease. 1999: Patient had repeat surgery on the stomach and according patient she had some more part of her stomach was removed due to recurrence of her peptic ulcer disease. Following that patient was getting repeat blood transfusions due to severe anemia. 2013: She was found to have iron deficiency anemia and received multiple IV iron infusions with significant improvement in her hemoglobin. More recently she was on Feraheme infusions. 08/13/2017: Patient received 510 mg of Feraheme. 01/02/2018: Patient had a bone marrow biopsy done which showed normocellular bone marrow with trilineage hematopoiesis and erythroid hyperplasia. No evidence of dysplasia, increased blasts, lymphoma or myeloma identified. As per the pathologist the prior bone marrow biopsy done on 05/06/2013 also showed a similar morphology. 08/05/2018?08/12/2018: Patient received 1020 mg of Feraheme. 02/12/2019: Hemoglobin 12.4, hematocrit 41, MCV 103. Iron saturation is 17% with a ferritin of 57. 09/09/2019: AST 536, ALT 576. T bili 0.3 iron saturation 12% with ferritin 977. 09/15/2019: AST 22, ALT 77. 09/28/2019?10/05/2019: Patient received 1020 mg of Feraheme. 04/25/2020: Hemoglobin 12.3, MCV 94, WBC 5.7, platelets 316,000. Iron saturation 12%, ferritin 35. 10/12/2020?10/18/2020: Patient received 1020 mg of Feraheme. 05/29/2021: WBC 6.9, hemoglobin 10.5, MCV 104, platelets 416,000, iron saturation 19%, ferritin 66, B12 381, folate 11.8. 06/29/2021: EGD? 07/27/2021: Repeat EGD? 09/11/2021: WBC 11.4, ANC 5.6, bands 8%, metamyelocytes 5%, myelocytes 13%, promyelocytes 2%, hemoglobin 8.8, MCV 110, platelets 398,000. Iron saturation 32%, ferritin 239, B12 513, folate of 9.9, TSH 2.76. 10/19/2021: Bone marrow biopsy and aspiration 12/28/2021: Vitamin B12 205 (211?911) 06/25/2022 - 07/02/2022: Ms. West received 1020 mg of Feraheme. She also received B12 1000 mcg. 08/09/2022 - 08/16/2022: Ms. West received 1020 mg of Feraheme. 08/07/2022: Bone marrow biopsy and aspiration? 08/13/2022: Hemoglobin 12.7, MCV 105, WBC 5.4, ANC 3.8, platelets 255,000, creatinine 0.5, iron saturation 36%, ferritin 793, B12 473. 12/14/2022: Hemoglobin 11.7, MCV 113, WBC 7.4, ANC 5.1, platelets 277,000, creatinine 0.7, her iron saturation is 18%, and ferritin is 304. B12 is 432. 02/25/2023: Hemoglobin 12.5, MCV 109, WBC 5.7, ANC 4.0, platelets 238,000, iron saturation 16%, ferritin 147. 05/27/2023: Hemoglobin 8.3, MCV 116, WBC 6.3, ANC 4.5, platelets 329,000, iron saturation 24%, ferritin 237 06/13/2023: Bone marrow biopsy 06/13/2023: Hemoglobin 9.4, MCV 115, WBC 6.3, ANC 4.3, platelets 271,000, creatinine 0.5, iron saturation is 20%, and ferritin is 126. B12 is 377. 07/29/2023-09/04/2023: Feraheme x 4 IV infusions, 2 g total. 09/09/2023: EGD 09/09/2023: EGD pathology report 09/17/2023: Hemoglobin 11.7, MCV 112, ANC 5.2, WBC 6.9, platelets 247,000, iron saturation 19%, ferritin 511, B12 is 595, folate is 13.51 10/04/2023: Right breast biopsy 11/18/2023: Hemoglobin 9.4, MCV 116, ANC 3.7, WBC 5.8, platelets 205,000, iron saturation 15%, ferritin 238, B12 is 435, folate 11.28 02/10/2024: Hemoglobin 11.9, MCV 113, ANC 5.4, WBC 7.7, platelets 204,000, iron saturation 22%, ferritin 497, B12 is 859 OTHER MEDICAL HISTORY/CONDITIONS: FAMILY HISTORY: ?Clone Family Hx? 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 MEDICATIONS: 1. Advair HFA - 2 Puff(s) Twice a Day 2. Ambien - 5 mg 1 tab Daily 3. atorvastatin - 40 mg 1 tab Daily 4. Dulcolax - 100 mg Twice a Day 5. gabapentin - 300 mg Three times a day 6. losartan - 50 mg 1 tab Daily 7. metoprolol succinate - 100 mg 1 tab Daily 8. [place] - 10 mg Every 6 Hours?Palabra Meds? Medications Last Reconciled by Jessenia Marina MD on 10/22/2024 ALLERGIES: No Known Drug Allergies REVIEW OF SYSTEMS: A complete 14-point review of systems was performed and is negative except as noted in interval history. PHYSICAL EXAMINATION:?CloneBlock PE? VITAL SIGNS: Temperature?97.7, B/P?123/79, Oxygen?Saturation?97% Weight?97?lbs (Change?since?09/28/24:?0?lbs) PAIN: 0 - No pain ECOG Performance Status: 0 - Asymptomatic and fully active GENERAL APPEARANCE: Thin, in no apparent distress, appropriately interactive. HEENT: Normocephalic, normal conjunctiva, no scleral icterus, normal hearing, lips without lesions, neck normal range of motion. CARDIOVASCULAR: Not assessed. PULMONARY: Normal respiratory effort, no respiratory distress or use of accessory muscles, speaking in full sentences, no tachypnea. EXTREMITIES: No cyanosis. SKIN: Normal skin appearance. NEUROLOGIC: Alert and oriented x4. PSHYCHIATRIC: Appropriate affect, mood normal, behavior normal, intact thought and speech. LABORATORY DATA: I have personally reviewed and interpreted each of the patient?s relevant lab tests, abnormal findings are below: Date 09/16/24 09/21/24 10/19/24 ??WHITE?BLOOD?COUNT?(Thou/mm3) 6.2 5.9 7.8 ??RED?BLOOD?COUNT?(Miln/mm3) 3.14?L 2.76?L 3.31?L ??HEMOGLOBIN?(gm/dl) 11.6?L 10.0?L 11.6?L ??HEMATOCRIT?(%) 36.5 31.6?L 37.0 ??PLATELET?COUNT?(Thou/mm3) 297 285 227 ??NEUTROPHILS?%,?AUTO?(%) 57 60 81?H ??LYMPH?%,?AUTO?(%) 27 26 10 ??NEUTROPHILS,?AUTO?(Thou/mm3) 3.6 3.6 6.3 ??GLUCOSE,RANDOM?(mg/dL) ? ? 101 ??BLOOD?UREA?NITROGEN?(mg/dL) ? ? 26?H ??CREATININE?(mg/dL) ? ? 1.00 ??SODIUM?(mmol/L) ? ? 138 ??POTASSIUM?(mmol/L) ? ? 4.5 ??CHLORIDE?(mmol/L) ? ? 104 ??CrCl?(CandG)?(ml/min) ? ? 37.40 ??AST/SGOT?(Unit/L) ? ? 31 ??ALT/SGPT?(Unit/L) ? ? 24 ??ALKALINE?PHOSPHATASE?(Unit/L) ? ? 80 ??BILIRUBIN,?TOTAL?(mg/dL) ? ? <?0.2?L ??PROTEIN?TOTAL?(gm/dl) ? ? 5.1?L ??ALBUMIN,?SERUM?(gm/dl) ? ? 3.2?L ??GLOBULIN?(gm/dl) ? ? 1.9?L ??ALBUMIN/GLOBULIN?RATIO ? ? 1.7 ??CALCIUM,?SERUM?(mg/dL) ? ? 8.5 ??CALCIUM?SERUM?(CORRECTED)?(mg/dL) ? ? 9.1 [facility]PLAN[facility] 1. History of iron deficiency anemia. History of B12 deficiency, started B12 on 06/08/2024. Hx of partial gastrectomy twice due to peptic ulcer disease (1997, 1999). Bone marrow biopsy negative (06/13/2023, 08/07/2022, 10/20/2019). Previously bone marrow biopsies have been ordered for anemia and macrocytosis. Oozing gastric ulcers, EGD, pathology negative for malignancy 09/09/2023). s/p multiple Feraheme infusions last time on 06/08/2024, pending 2 additional IV Feraheme infusions. Unable to tolerate ferrous sulfate due to severe constipation. CT of abdomen and pelvis was ordered due to previous complaint of epigastric pain, nausea, decreased appetite. No pain today. CT showed mild enlargement of the bile duct HIDA scan recommend, did not show spleen enlarged, 03/05/2024 Ultrasound of the liver done 05/07/2024 showed abnormally enlarged common bile duct 14 mm, consider MRCP. MRCP recommended ERCP to exclude malignant stricture of the distal common bile duct, 06/10/2024. Pending referral to GI for ERCP and to follow-up for patient's complaint heartburn nausea and weight loss, patient lost 11 lb from November 2023. Previously, bone marrow biopsies had been ordered due to patient's anemia and macrocytosis. We do not have a recent CBC. Labs from 05/05/2024 showed hemoglobin 11.5, MCV 111, reticulocyte count 1.9, WBC was 5.6, platelet count 249,000, creatinine 0.6, EGFR>60, calcium 9.3. Most likely macrocytosis secondary to increased reticulocyte production. Patient have no recent dark stools. Patient has persistent anemia with a current hemoglobin of 10 g/dL (normal range for women is typically 12-15.5 g/dL). Previous workup, including B12 and iron studies, has returned normal results. The etiology of the anemia remains unclear, necessitating further investigation. Plan: - Perform bone marrow biopsy to investigate the cause of persistent anemia - If bone marrow biopsy is inconclusive, proceed with whole-body scan to rule out other potential causes - Follow up in 4 weeks to review results 2. Breast cancer screening Bilateral breast ultrasound, BI-RADS Category 3 probably benign findings, repeat bilateral breast ultrasound in 6 months, 01/27/2024. Bilateral mammogram screening showed benign findings, recommended bilateral ultrasound in 12/24/2023. Right breast biopsy showed benign fibroadenomas, negative for carcinoma, 10/04/2023 Ordered bilateral breast ultrasound follow-up for 07/2024 3. Patient reports PCP ordered PTH hormone level, patient requesting we give her the results, PTH is 96.1. Patient advised to follow-up with PCP as soon as possible for result Referral to endocrinology. Brett Win presents for follow-up of anemia and macrocytosis, with previous negative bone marrow biopsy for cancer. Cholelithiasis and choledocholithiasis Assessment: Incidental finding of gallstones in the gallbladder and bile duct noted on imaging. This condition requires further evaluation and management by a icing machine operator. Plan: - Refer to gastroenterology for evaluation and management of gallstones and bile duct stones - assistant kitchen manager to provide referral paperwork to patient Biliary tract abnormality Assessment: Patient has abnormal liver function tests and imaging studies suggesting a narrowed bile duct. Previous ultrasound and MRI/CT (patient unsure which) have been performed. MRCP has been recommended to further evaluate the gallbladder and biliary system. Plan: - Refer to hepatobiliary specialist for ERCP (Endoscopic Retrograde Cholangiopancreatography) to evaluate bile ducts and rule out any growths - Patient to schedule appointment with hepatobiliary specialist Hypocalcemia and Osteoporosis Assessment: Patient has very low calcium levels and a known diagnosis of osteoporosis. She reports not taking calcium supplements as recommended. Plan: - Start daily calcium supplementation with fatty foods - Educate patient on the importance of calcium supplementation for bone health Audelia West, female patient with history of gastric bypass, presenting with fatigue and concerns about cancer. Recent workup negative for malignancy. Fatigue Assessment: Patient reports feeling tired. Extensive workup performed to rule out malignancy, including bone marrow biopsy, gastric evaluation, and bone scan, all of which were negative for cancer. B12 deficiency previously identified and treated. Recent labs show high B12 levels (>2000) and normal iron levels. Calprotectin level in stool test was significantly elevated at 1500, indicating intestinal inflammation. This inflammation may be contributing to the patient's symptoms and poor nutrient absorption. Plan: - Discontinue B12 injections due to high serum levels - Continue daily multivitamin - Referral to icing machine operator at [facility] for evaluation of elevated calprotectin and intestinal inflammation - Patient to follow up with Dr. Aguilar's office regarding the gastroenterology referral - Follow up with oncology in 6 months B12 Deficiency Assessment: Patient has a history of B12 deficiency, likely related to previous gastric bypass surgery. Recent B12 levels were very high (>2000), indicating overtreatment. Plan: - Discontinue B12 injections temporarily - Avoid checking B12 levels while on supplementation to prevent insurance coverage issues - Reassess B12 status at next visit Elevated Calprotectin Assessment: Recent stool test revealed significantly elevated calprotectin level of 1500, indicating intestinal inflammation. This finding may explain the patient's symptoms of fatigue and poor nutrient absorption. Plan: - Referral to icing machine operator at [facility] for further evaluation and management of intestinal inflammation - Patient to follow up with Dr. Aguilar's office regarding the gastroenterology referral ORDERS: Order # Description [id number] CBC + Comprehensive Metabolic Panel [id number] Lab Appointment [id number] CBC + Comprehensive Metabolic Panel [id number] Lab Appointment [id number] CBC + Comprehensive Metabolic Panel [id number] Lab Appointment [id number] CBC + Comprehensive Metabolic Panel [id number] Lab Appointment RETURN TO CLINIC: I reviewed the diagnosis, prognosis, and recommended treatment/procedure options with the patient (and/or their legal medical claims representative), including the potential benefits, risks, side effects and alternative therapies. We also discussed the option of no treatment and the possibility of clinical trial participation, if applicable. All questions were addressed, and they demonstrated understanding. They provided informed consent to proceed with the proposed plan of care. BILLING AND COMPLIANCE: I reviewed external records from providers outside my specialty as summarized above. I spent a total of 50 minutes on this patient?s care on the day of their visit excluding time spent related to any billed procedures. This time includes time spent with the patient as well as time spent documenting in the medical record, reviewing patients records and tests, obtaining history, placing orders, communicating with other healthcare professionals, counseling the patient, family or caregiver, and/or care coordination for the diagnoses above. Electronically Signed by: Moi Vital MD T: 7:01 AM CC: Kenn?Ivette? PCP: No Primary/family, Physician Referring: Wilfrido Ramírez This document was completed utilizing speech recognition software. Grammatical errors, random word insertions, pronoun errors, and incomplete sentences are an occasional consequence of this system due to software limitations, ambient noise, and hardware issues. Any formal questions or concerns about the content, text or information contained within the body of this dictation should be directly addressed to the provider for clarification.
== END 2024-10-22 23:59 | disposition home or self-care (01) ==
LOC: SCTC 14:31
PROVIDERS: Referring Provider Internal Medicine Hematology & Oncology; Visit Provider Internal Medicine Hematology & Oncology
DX: D50.9 Iron deficiency anemia, unspecified (principal); E53.8 Deficiency of other specified B group vitamins; Z98.84 Bariatric surgery status; Z90.3 Acquired absence of stomach [part of]; Z87.11 Personal history of peptic ulcer disease; K80.70 Calculus of gallbladder and bile duct without cholecystitis without obstruction; E83.51 Hypocalcemia; M81.0 Age-related osteoporosis without current pathological fracture; R53.83 Other fatigue
CPT/HCPCS: 99212; G0463

== ENCOUNTER → 2024-11-18 | Outpatient (CLI) | payer MEDICARE, MEDICAID, SELFPAY ==
[2024-11-18 13:19] LABS: Basophils # (Auto) 0.0 Thou/mm3 (0.0-0.2); Basophils % (Auto) 1 % (0-2.5); Eosinophils # (Auto) 0.1 Thou/mm3 (0.0-0.5); Eosinophils % (Auto) 1 % (0-10); Hematocrit 34.1 % (36.0-46.0); Hemoglobin 10.6 g/dL (12.0-16.0); Immature Granulocytes Auto 0.04 Thou/mm3 (0.00-0.00); Immature Reticulocyte Fraction 31.7 % (3.0-15.9); Lymphocytes # (Auto) 1.1 Thou/mm3 (1.0-4.8); Lymphocytes % (Auto) 20 % (10-50); Mean Corpuscular HGB Conc 31.1 g/dl (31.0-37.0); Mean Corpuscular Hemoglobin 34.4 pg (25.0-35.0); Mean Corpuscular Volume 111 fL (80-100); Monocytes # (Auto) 0.4 Thou/mm3 (0.0-0.8); Monocytes % (Auto) 7 % (0-12); Neutrophils # (Auto) 3.9 Thou/mm3 (1.8-7.7); Neutrophils % (Auto) 71 % (37-80); Nucleated Red Blood Cell # 0.00 Thou/mm3 (0.00-0.00); Nucleated Red Blood Cell % 0 /100 WBC (0); Platelet Count 225 Thou/mm3 (140-440); RDW Standard Deviation 54.4 fL (36.4-46.3); Red Blood Count 3.08 Miln/mm3 (4.00-5.20); Reticulocyte % (Auto) 2.2 % (0.5-1.5); Reticulocyte Absolute Auto 66.2 Biln/L (25.0-75.0); Reticulocyte Hgb Content 38.1 pg (28.0-35.0); White Blood Count 5.5 Thou/mm3 (3.6-11.0)
[2024-11-18 13:38] LABS: Ferritin 317 ng/mL (7.3-270.7); Iron 44 mcg/dL (50-170); Percent Iron Saturation 18 % (20-55); Total Iron Binding Capacity 237 mcg/dL (250-425); Unsaturated Iron Binding 193 (225-295)
[2024-11-18 13:44] LABS: Alanine Aminotransferase 28 U/L (10-49); Albumin, Serum 2.9 gm/dL (3.4-4.8); Albumin/Globulin Ratio 2.1 (1.2-2.2); Alkaline Phosphatase 64 U/L (46-116); Anion Gap 7 (7-16); Aspartate Amino Transferase 23 U/L (0-34); BUN/Creatinine Ratio 26 Ratio (12-20); Bilirubin,Total < 0.2 mg/dL (0.3-1.2); Blood Urea Nitrogen 18 mg/dL (9-23); Calcium 8.8 mg/dL (8.3-10.6); Calcium (Corrected) 9.7 mg/dL (8.5-10.1); Carbon Dioxide 28.1 mMol/L (20.0-31.0); Chloride 110 mMol/L (98-107); Creatinine (Component) 0.7 mg/dL (0.6-1.3); Folate 19.39 ng/mL (>5.38); Globulin 1.4 gm/dL (2.3-3.5); Glucose 105 mg/dL (74-106); LDH (Lactate Dehydrogenase) 195 U/L (120-246); Osmolality,Calculated 290 (275-295); Potassium 3.8 mMol/L (3.4-5.1); Sodium 145 mMol/L (136-145); Total Protein 4.3 gm/dL (5.7-8.2); Vitamin B12 574 pg/mL (211-911); eGFR > 60 See Note
[2024-11-30 08:43] LABS: Haptoglobin* 72 mg/dL (43-212)
== END | disposition home or self-care (01) ==
LOC: SCTO 12:40
PROVIDERS: PCP Physician Assistant; Referring Provider Internal Medicine Hematology & Oncology; Visit Provider Internal Medicine Hematology & Oncology
DX: D50.9 Iron deficiency anemia, unspecified (principal)
CPT/HCPCS: 36415; 80053; 82607; 82728; 82746; 83010; 83540; 83550; 83615; 85025; 85046

== ENCOUNTER → 2024-11-25 | Outpatient (CLI) | payer MEDICARE, MEDICAID, SELFPAY ==
[2024-11-25 11:26] LABS: Basophils # (Auto) 0.0 Thou/mm3 (0.0-0.2); Basophils % (Auto) 1 % (0-2.5); Eosinophils # (Auto) 0.1 Thou/mm3 (0.0-0.5); Eosinophils % (Auto) 2 % (0-10); Hematocrit 33.5 % (36.0-46.0); Hemoglobin 10.3 g/dL (12.0-16.0); Immature Granulocytes Auto 0.02 Thou/mm3 (0.00-0.00); Lymphocytes # (Auto) 0.7 Thou/mm3 (1.0-4.8); Lymphocytes % (Auto) 24 % (10-50); Mean Corpuscular HGB Conc 30.7 g/dl (31.0-37.0); Mean Corpuscular Hemoglobin 34.9 pg (25.0-35.0); Mean Corpuscular Volume 114 fL (80-100); Monocytes # (Auto) 0.4 Thou/mm3 (0.0-0.8); Monocytes % (Auto) 14 % (0-12); Neutrophils # (Auto) 1.8 Thou/mm3 (1.8-7.7); Neutrophils % (Auto) 59 % (37-80); Nucleated Red Blood Cell # 0.00 Thou/mm3 (0.00-0.00); Nucleated Red Blood Cell % 0 /100 WBC (0); Platelet Count 190 Thou/mm3 (140-440); RDW Standard Deviation 57.1 fL (36.4-46.3); Red Blood Count 2.95 Miln/mm3 (4.00-5.20); White Blood Count 3.1 Thou/mm3 (3.6-11.0)
[2024-11-25 11:48] LABS: Vitamin D 25 Hydroxy Total 53.0 ng/mL (7.3-40.2)
[2024-11-25 11:53] LABS: Alanine Aminotransferase 59 U/L (10-49); Albumin, Serum 3.2 gm/dL (3.4-4.8); Albumin/Globulin Ratio 2.0 (1.2-2.2); Alkaline Phosphatase 53 U/L (46-116); Anion Gap 8 (7-16); Aspartate Amino Transferase 56 U/L (0-34); BUN/Creatinine Ratio 22 Ratio (12-20); Bilirubin,Total 0.3 mg/dL (0.3-1.2); Blood Urea Nitrogen 13 mg/dL (9-23); Calcium 9.0 mg/dL (8.3-10.6); Calcium (Corrected) 9.6 mg/dL (8.5-10.1); Carbon Dioxide 28.5 mMol/L (20.0-31.0); Cardiac Risk Estimate 1.8 RATIO (3.7-5.6); Chloride 106 mMol/L (98-107); Cholesterol 108 mg/dL (132-200); Creatinine (Component) 0.6 mg/dL (0.6-1.3); Globulin 1.6 gm/dL (2.3-3.5); Glucose 92 mg/dL (74-106); HDL Cholesterol 59 mg/dL (40-60); LDL Cholesterol,Calculated 34 mg/dL (0-130); Osmolality,Calculated 283 (275-295); Potassium 4.6 mMol/L (3.4-5.1); Sodium 142 mMol/L (136-145); Thyroid Stimulating Hormone 2.94 uIU/mL (0.55-4.78); Total Protein 4.8 gm/dL (5.7-8.2); Triglycerides 76 mg/dL (30-150); eGFR > 60 See Note
[2024-11-26 11:01] LABS: Misc Send Out* See Sep Rpt
== END | disposition home or self-care (01) ==
LOC: COPL 11:01
PROVIDERS: PCP Physician Assistant; Referring Provider Family Medicine; Visit Provider Family Medicine
DX: Z13.1 Encounter for screening for diabetes mellitus (principal); Z13.220 Encounter for screening for lipoid disorders; I10 Essential (primary) hypertension; E55.9 Vitamin D deficiency, unspecified
CPT/HCPCS: 36415; 80053; 80061; 82306; 83036; 84443; 85025

== ENCOUNTER → 2024-12-09 | Outpatient (CLI) | payer MEDICARE, MEDICAID, SELFPAY ==
[2024-12-09 13:28] LABS: Alanine Aminotransferase 38 U/L (10-49); Albumin, Serum 3.2 gm/dL (3.4-4.8); Albumin/Globulin Ratio 1.8 (1.2-2.2); Alkaline Phosphatase 70 U/L (46-116); Anion Gap 6 (7-16); Aspartate Amino Transferase 27 U/L (0-34); BUN/Creatinine Ratio 24 Ratio (12-20); Bilirubin,Total 0.2 mg/dL (0.3-1.2); Blood Urea Nitrogen 17 mg/dL (9-23); Calcium 9.1 mg/dL (8.3-10.6); Calcium (Corrected) 9.7 mg/dL (8.5-10.1); Carbon Dioxide 28.6 mMol/L (20.0-31.0); Chloride 108 mMol/L (98-107); Creatinine (Component) 0.7 mg/dL (0.6-1.3); Globulin 1.8 gm/dL (2.3-3.5); Glucose 104 mg/dL (74-106); Osmolality,Calculated 286 (275-295); Potassium 4.9 mMol/L (3.4-5.1); Sodium 143 mMol/L (136-145); Total Protein 5.0 gm/dL (5.7-8.2); eGFR > 60 See Note
== END | disposition home or self-care (01) ==
LOC: COPL 12:44
PROVIDERS: PCP Family Medicine
DX: D50.9 Iron deficiency anemia, unspecified (principal)
CPT/HCPCS: 36415; 80053

== ENCOUNTER → 2024-12-17 | Outpatient (CLI) | payer MEDICARE, MEDICAID, SELFPAY ==
[2024-12-17 16:44] LABS: Basophils # (Auto) 0.0 Thou/mm3 (0.0-0.2); Basophils % (Auto) 1 % (0-2.5); Eosinophils # (Auto) 0.0 Thou/mm3 (0.0-0.5); Eosinophils % (Auto) 0 % (0-10); Hematocrit 36.3 % (36.0-46.0); Hemoglobin 11.2 g/dL (12.0-16.0); Immature Granulocytes Auto 0.04 Thou/mm3 (0.00-0.00); Immature Reticulocyte Fraction 16.8 % (3.0-15.9); Lymphocytes # (Auto) 1.4 Thou/mm3 (1.0-4.8); Lymphocytes % (Auto) 22 % (10-50); Mean Corpuscular HGB Conc 30.9 g/dl (31.0-37.0); Mean Corpuscular Hemoglobin 33.9 pg (25.0-35.0); Mean Corpuscular Volume 110 fL (80-100); Monocytes # (Auto) 0.3 Thou/mm3 (0.0-0.8); Monocytes % (Auto) 6 % (0-12); Neutrophils # (Auto) 4.4 Thou/mm3 (1.8-7.7); Neutrophils % (Auto) 71 % (37-80); Nucleated Red Blood Cell # 0.00 Thou/mm3 (0.00-0.00); Nucleated Red Blood Cell % 0 /100 WBC (0); Platelet Count 229 Thou/mm3 (140-440); RDW Standard Deviation 51.3 fL (36.4-46.3); Red Blood Count 3.30 Miln/mm3 (4.00-5.20); Reticulocyte % (Auto) 1.5 % (0.5-1.5); Reticulocyte Absolute Auto 49.2 Biln/L (25.0-75.0); Reticulocyte Hgb Content 38.2 pg (28.0-35.0); White Blood Count 6.2 Thou/mm3 (3.6-11.0)
[2024-12-17 17:01] LABS: Folate 13.22 ng/mL (>5.38); Vitamin B12 394 pg/mL (211-911)
[2024-12-17 17:02] LABS: Ferritin 239 ng/mL (7.3-270.7); Iron 38 mcg/dL (50-170); Percent Iron Saturation 14 % (20-55); Total Iron Binding Capacity 265 mcg/dL (250-425); Unsaturated Iron Binding 227 (225-295)
[2024-12-17 17:08] LABS: Alanine Aminotransferase 31 U/L (10-49); Albumin, Serum 3.3 gm/dL (3.4-4.8); Albumin/Globulin Ratio 1.8 (1.2-2.2); Alkaline Phosphatase 68 U/L (46-116); Anion Gap 8 (7-16); Aspartate Amino Transferase 25 U/L (0-34); BUN/Creatinine Ratio 13 Ratio (12-20); Bilirubin,Total < 0.2 mg/dL (0.3-1.2); Blood Urea Nitrogen 20 mg/dL (9-23); Calcium 8.5 mg/dL (8.3-10.6); Calcium (Corrected) 9.1 mg/dL (8.5-10.1); Carbon Dioxide 27.6 mMol/L (20.0-31.0); Chloride 107 mMol/L (98-107); Creatinine (Component) 1.5 mg/dL (0.6-1.3); Globulin 1.8 gm/dL (2.3-3.5); Glucose 116 mg/dL (74-106); LDH (Lactate Dehydrogenase) 260 U/L (120-246); Osmolality,Calculated 288 (275-295); Potassium 4.8 mMol/L (3.4-5.1); Sodium 143 mMol/L (136-145); Total Protein 5.1 gm/dL (5.7-8.2); eGFR 38 See Note
[2024-12-24 06:27] LABS: Haptoglobin* 70 mg/dL (43-212)
== END | disposition home or self-care (01) ==
LOC: SCTO 14:50
PROVIDERS: PCP Physician Assistant; Referring Provider Internal Medicine Hematology & Oncology; Visit Provider Internal Medicine Hematology & Oncology
DX: D50.9 Iron deficiency anemia, unspecified (principal)
CPT/HCPCS: 36415; 80053; 82607; 82728; 82746; 83010; 83540; 83550; 83615; 85025; 85046

== ENCOUNTER 2024-12-23 13:55 | Outpatient (RCR) | payer MEDICARE, MEDICAID, SELFPAY | END 2025-01-22 23:59 | disposition home or self-care (01) | LOC: SCTC 13:55 | PROVIDERS: PCP Physician Assistant; Referring Provider Physician Assistant; Visit Provider Internal Medicine Hematology & Oncology | DX: D50.9 Iron deficiency anemia, unspecified (principal); E53.8 Deficiency of other specified B group vitamins; K80.20 Calculus of gallbladder without cholecystitis without obstruction; N63.20 Unspecified lump in the left breast, unspecified quadrant; N63.10 Unspecified lump in the right breast, unspecified quadrant; E83.51 Hypocalcemia; M81.0 Age-related osteoporosis without current pathological fracture; Z90.3 Acquired absence of stomach [part of]; Z87.11 Personal history of peptic ulcer disease; Z98.84 Bariatric surgery status; R53.83 Other fatigue | CPT/HCPCS: 99212; G0463 ==

== ENCOUNTER → 2025-01-29 | Outpatient (CLI) | payer MEDICARE, MEDICAID, SELFPAY ==
--- NOTE | 2025-01-29 11:45 | XR_ITS ---
Examination: Screening digital mammography, bilateral Computer aided detection 3-D breast Tomosynthesis, bilateral Date and time of exam: 01/29/2025, 11:53 a.m. Comparisons: December 24, 2023 Indications: Screening Technique: Nonmagnified MLO, CC views of the breasts to been obtained, reconstructed from 3-D Tomosynthesis images. R2 computer aided detection program utilized for evaluation of suspicious masses and/or abnormal calcifications. 3-D Tomosynthesis images obtained. Technologist: Findings: The breasts are heterogeneously dense, which may obscure small masses. No evidence of abnormal masses or suspicious calcifications. Impression: BI-RADS category 1: Negative findings (within normal) Recommend 1 year follow-up mammogram
== END | disposition home or self-care (01) ==
LOC: CDIM 11:47
PROVIDERS: Referring Provider Family Medicine; Visit Provider Family Medicine
DX: Z12.31 Encounter for screening mammogram for malignant neoplasm of breast (principal); R92.313 Mammographic fatty tissue density, bilateral breasts
CPT/HCPCS: 77063; 77067

== ENCOUNTER 2025-02-01 14:30 | Outpatient (RCR) | payer MEDICARE, MEDICAID, SELFPAY | END 2025-02-21 23:59 | disposition home or self-care (01) | LOC: SCTC 14:30 | PROVIDERS: PCP Physician Assistant; Referring Provider Physician Assistant; Visit Provider Internal Medicine Hematology & Oncology | DX: D50.9 Iron deficiency anemia, unspecified (principal); E53.8 Deficiency of other specified B group vitamins; Z98.84 Bariatric surgery status; Z87.11 Personal history of peptic ulcer disease; Z90.3 Acquired absence of stomach [part of]; M81.0 Age-related osteoporosis without current pathological fracture; E83.51 Hypocalcemia | CPT/HCPCS: 96365; 96372; 96375; J1756; J2919; J3420; J3490; J7040 ==

== ENCOUNTER → 2025-02-24 | Outpatient (CLI) | payer MEDICARE, MEDICAID, SELFPAY ==
[2025-02-24 13:02] LABS: Basophils # (Auto) 0.0 Thou/mm3 (0.0-0.2); Basophils % (Auto) 1 % (0-2.5); Eosinophils # (Auto) 0.0 Thou/mm3 (0.0-0.5); Eosinophils % (Auto) 0 % (0-10); Hematocrit 29.4 % (36.0-46.0); Hemoglobin 9.0 g/dL (12.0-16.0); Immature Granulocytes Auto 0.46 Thou/mm3 (0.00-0.00); Lymphocytes # (Auto) 1.4 Thou/mm3 (1.0-4.8); Lymphocytes % (Auto) 21 % (10-50); Mean Corpuscular HGB Conc 30.6 g/dl (31.0-37.0); Mean Corpuscular Hemoglobin 34.4 pg (25.0-35.0); Mean Corpuscular Volume 112 fL (80-100); Monocytes # (Auto) 0.4 Thou/mm3 (0.0-0.8); Monocytes % (Auto) 7 % (0-12); Neutrophils # (Auto) 4.1 Thou/mm3 (1.8-7.7); Neutrophils % (Auto) 64 % (37-80); Nucleated Red Blood Cell # 0.05 Thou/mm3 (0.00-0.00); Nucleated Red Blood Cell % 1 /100 WBC (0); Platelet Count 422 Thou/mm3 (140-440); RDW Standard Deviation 62.5 fL (36.4-46.3); Red Blood Count 2.62 Miln/mm3 (4.00-5.20); White Blood Count 6.4 Thou/mm3 (3.6-11.0)
[2025-02-24 13:17] LABS: Alanine Aminotransferase 23 U/L (10-49); Albumin, Serum 3.0 gm/dL (3.4-4.8); Albumin/Globulin Ratio 1.5 (1.2-2.2); Alkaline Phosphatase 80 U/L (46-116); Anion Gap 9 (7-16); Aspartate Amino Transferase 19 U/L (0-34); BUN/Creatinine Ratio 20 Ratio (12-20); Bilirubin,Total 0.2 mg/dL (0.3-1.2); Blood Urea Nitrogen 18 mg/dL (9-23); Calcium 8.1 mg/dL (8.3-10.6); Calcium (Corrected) 8.9 mg/dL (8.5-10.1); Carbon Dioxide 23.3 mMol/L (20.0-31.0); Chloride 110 mMol/L (98-107); Creatinine (Component) 0.9 mg/dL (0.6-1.3); Globulin 2.0 gm/dL (2.3-3.5); Glucose 112 mg/dL (74-106); Osmolality,Calculated 286 (275-295); Potassium 4.5 mMol/L (3.4-5.1); Sodium 142 mMol/L (136-145); Total Protein 5.0 gm/dL (5.7-8.2); eGFR > 60 See Note
[2025-02-24 13:21] LABS: Ferritin 298 ng/mL (7.3-270.7); Iron 52 mcg/dL (50-170); Percent Iron Saturation 27 % (20-55); Total Iron Binding Capacity 187 mcg/dL (250-425); Unsaturated Iron Binding 135 (225-295)
[2025-02-24 13:44] LABS: Folate 11.12 ng/mL (>5.38); Vitamin B12 1165 pg/mL (211-911)
== END | disposition home or self-care (01) ==
PROVIDERS: PCP Physician Assistant; Visit Provider Internal Medicine Hematology & Oncology
DX: R51.9 Headache, unspecified (principal); D64.9 Anemia, unspecified; D50.9 Iron deficiency anemia, unspecified
CPT/HCPCS: 36415; 80053; 82607; 82728; 82746; 83540; 83550; 85025

== ENCOUNTER 2025-03-03 14:00 | Outpatient (RCR) | payer MEDICARE, MEDICAID, SELFPAY ==
--- NOTE | 2025-02-25 14:50 | CTCFLWUP_ITS ---
Patient: AUDELIA WEST : 1955 Page 8 of 11 FOLLOW UP NOTE DATE OF SERVICE: 02/25/2025 NAME: AUDELIA WEST ACCOUNT: [id number] : 1955 AGE: 69 INTERVAL HISTORY: Audelia, a female with history of gastric bypass, presented with fatigue and gastrointestinal issues. Past medical history includes B12 deficiency and iron deficiency. Extensive cancer workup was negative, but stool test showed significantly elevated calprotectin (1500), indicating intestinal inflammation. Recent labs showed high B12 (>2000) and iron levels. B12 injections were discontinued due to high levels. Patient was referred to [facility] gastroenterology for evaluation of intestinal inflammation and I reviewed pictures of colonoscopy and endoscopy and seems inflammation only and no cancer will get report from [facility]. Patient has upcoming appointment with GI. Patient still feeling feeling very fatigued and tired. Her HandH has dropped from 11-9. Patient seem to only 1 infusion with iron. Chief Complaint Feeling so tired , ongoing gastrointestinal issues History of Present Illness Audelia West, a patient with a history of gastric bypass, presents for follow- up regarding ongoing fatigue and concerns about potential cancer. She reports feeling so tired despite previous evaluations that have ruled out cancer. The patient's primary complaint is persistent fatigue, though the exact onset and duration are not specified. She has undergone extensive testing, including a bone marrow biopsy, stomach evaluation, and bone scans, all of which have been negative for cancer. The patient was previously diagnosed with B12 deficiency and has been receiving B12 injections. She also mentions a history of iron deficiency, though recent lab results show high levels of both B12 and iron. Audelia has been experiencing gastrointestinal issues, as evidenced by a recent stool test showing elevated calprotectin levels, indicating significant inflammation in her intestines. This inflammation may be contributing to her symptoms, including her thin appearance and potential malabsorption issues. The patient reports having seen a laundromat worker, Dr. Aguilar, who recommended further specialist evaluation at [facility], though she has not yet received a call for this appointment. The patient's fatigue and gastrointestinal symptoms appear to be impacting her overall health and potentially her ability to maintain a healthy weight. She has been adherent to her B12 injection regimen, though there was a recent interruption due to high B12 levels detected in her bloodwork. Medications and Supplements - B12 injections - Given intravenously - Patient missed a recent dose due to high B12 levels - Multivitamin - Taken daily Review of Systems General: Positive for fatigue. Gastrointestinal: Positive for inability to absorb nutrients. Medications and Supplements - Calcium - Not taking as prescribed. - Vitamin B-12 - Levels reported as normal. - Iron - Levels reported as normal. Laboratory, Imaging, and Diagnostic Test Results - Date: 09/16/2024 - B12: >2000 (high) - Iron: High (specific value not provided) - Other vitamin levels: High (specific values not provided) - Bone marrow biopsy: Normal, no cancer detected - Stool test: - Calprotectin: 1500 (high) Medical History - Anemia - Macrocytosis (larger cell size) Surgical History - Bone marrow biopsy last year Medical History - Anemia - Macrocytosis (larger cell size) Surgical History - Bone marrow biopsy last year ONCOLOGY HISTORY:?CloneBlock Oncology Hx? DIAGNOSIS: Iron deficiency anemia, unspecified [ICD10] D50.9 History of iron deficiency anemia. History of B12 deficiency, on monthly injections. Hx of partial gastrectomy twice due to peptic ulcer disease (1997, 1999). History of left intertrochanteric hip fracture (07/08/2022) Bone marrow biopsy negative, (06/13/2023 and 08/07/2022). Oozing gastric ulcers, EGD, (09/09/2023). s/p multiple Feraheme infusions ?CloneBlock Dx? DATE OF DIAGNOSIS: STAGE/TNM: TREATMENT HISTORY: Care?Plan Start?Date Cycle Day Intent FERAheme 08/05/2018 1 30 Palliative B?12 01/11/2022 1 28 Palliative VENOfer?200mg?IV?wkly?for?10?weeks 01/11/2022 1 70 Palliative FERAheme?4?doses 01/11/2022 1 28 Maintenance FERAheme?4?doses 07/29/2023 1 28 Palliative FERAheme?4?doses 11/21/2023 1 28 Palliative B?12?monthly 11/21/2023 1 28 Palliative FERAheme 06/08/2024 1 30 Palliative FERAheme 06/22/2024 1 30 Palliative VENOfer?200mg?IV?wkly?for?10?weeks 02/01/2025 1 70 Palliative HISTORY OF PRESENT ILLNESS: PREVIOUS NOTE: Patient unable to tolerate oral ferrous sulfate due to constipation. Last Feraheme infusion was on 12/19/2023. Patient follows up with Dr. Aguilar, GI. Patient denies bloody stools, chest pain vomiting fever. Ambulating well without any help. HISTORY: Audelia West is a 69-year-old Lao speaking female with following history. 1997: Patient had partial gastrectomy for peptic ulcer disease. 1999: Patient had repeat surgery on the stomach and according patient she had some more part of her stomach was removed due to recurrence of her peptic ulcer disease. Following that patient was getting repeat blood transfusions due to severe anemia. 2013: She was found to have iron deficiency anemia and received multiple IV iron infusions with significant improvement in her hemoglobin. More recently she was on Feraheme infusions. 08/13/2017: Patient received 510 mg of Feraheme. 01/02/2018: Patient had a bone marrow biopsy done which showed normocellular bone marrow with trilineage hematopoiesis and erythroid hyperplasia. No evidence of dysplasia, increased blasts, lymphoma or myeloma identified. As per the pathologist the prior bone marrow biopsy done on 05/06/2013 also showed a similar morphology. 08/05/2018?08/12/2018: Patient received 1020 mg of Feraheme. 02/12/2019: Hemoglobin 12.4, hematocrit 41, MCV 103. Iron saturation is 17% with a ferritin of 57. 09/09/2019: AST 536, ALT 576. T bili 0.3 iron saturation 12% with ferritin 977. 09/15/2019: AST 22, ALT 77. 09/28/2019?10/05/2019: Patient received 1020 mg of Feraheme. 04/25/2020: Hemoglobin 12.3, MCV 94, WBC 5.7, platelets 316,000. Iron saturation 12%, ferritin 35. 10/12/2020?10/18/2020: Patient received 1020 mg of Feraheme. 05/29/2021: WBC 6.9, hemoglobin 10.5, MCV 104, platelets 416,000, iron saturation 19%, ferritin 66, B12 381, folate 11.8. 06/29/2021: EGD? 07/27/2021: Repeat EGD? 09/11/2021: WBC 11.4, ANC 5.6, bands 8%, metamyelocytes 5%, myelocytes 13%, promyelocytes 2%, hemoglobin 8.8, MCV 110, platelets 398,000. Iron saturation 32%, ferritin 239, B12 513, folate of 9.9, TSH 2.76. 10/19/2021: Bone marrow biopsy and aspiration 12/28/2021: Vitamin B12 205 (211?911) 06/25/2022 - 07/02/2022: Ms. West received 1020 mg of Feraheme. She also received B12 1000 mcg. 08/09/2022 - 08/16/2022: Ms. West received 1020 mg of Feraheme. 08/07/2022: Bone marrow biopsy and aspiration? 08/13/2022: Hemoglobin 12.7, MCV 105, WBC 5.4, ANC 3.8, platelets 255,000, creatinine 0.5, iron saturation 36%, ferritin 793, B12 473. 12/14/2022: Hemoglobin 11.7, MCV 113, WBC 7.4, ANC 5.1, platelets 277,000, creatinine 0.7, her iron saturation is 18%, and ferritin is 304. B12 is 432. 02/25/2023: Hemoglobin 12.5, MCV 109, WBC 5.7, ANC 4.0, platelets 238,000, iron saturation 16%, ferritin 147. 05/27/2023: Hemoglobin 8.3, MCV 116, WBC 6.3, ANC 4.5, platelets 329,000, iron saturation 24%, ferritin 237 06/13/2023: Bone marrow biopsy 06/13/2023: Hemoglobin 9.4, MCV 115, WBC 6.3, ANC 4.3, platelets 271,000, creatinine 0.5, iron saturation is 20%, and ferritin is 126. B12 is 377. 07/29/2023-09/04/2023: Feraheme x 4 IV infusions, 2 g total. 09/09/2023: EGD 09/09/2023: EGD pathology report 09/17/2023: Hemoglobin 11.7, MCV 112, ANC 5.2, WBC 6.9, platelets 247,000, iron saturation 19%, ferritin 511, B12 is 595, folate is 13.51 10/04/2023: Right breast biopsy 11/18/2023: Hemoglobin 9.4, MCV 116, ANC 3.7, WBC 5.8, platelets 205,000, iron saturation 15%, ferritin 238, B12 is 435, folate 11.28 02/10/2024: Hemoglobin 11.9, MCV 113, ANC 5.4, WBC 7.7, platelets 204,000, iron saturation 22%, ferritin 497, B12 is 859 OTHER MEDICAL HISTORY/CONDITIONS: FAMILY HISTORY: ?Clone Family Hx? 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 MEDICATIONS: 1. Advair HFA - 2 Puff(s) Twice a Day 2. Ambien - 5 mg 1 tab Daily 3. atorvastatin - 40 mg 1 tab Daily 4. Dulcolax - 100 mg Twice a Day 5. gabapentin - 300 mg Three times a day 6. losartan - 50 mg 1 tab Daily 7. metoprolol succinate - 100 mg 1 tab Daily 8. [place] - 10 mg Every 6 Hours?[place]ra Meds? Medications Last Reconciled by Jessenia Marina MD on 12/23/2024 ALLERGIES: No Known Drug Allergies REVIEW OF SYSTEMS: A complete 14-point review of systems was performed and is negative except as noted in interval history. PHYSICAL EXAMINATION:?CloneBlock PE? VITAL SIGNS: Temperature?98.5 GENERAL APPEARANCE: Thin, in no apparent distress, appropriately interactive. HEENT: Normocephalic, normal conjunctiva, no scleral icterus, normal hearing, lips without lesions, neck normal range of motion. CARDIOVASCULAR: Not assessed. PULMONARY: Normal respiratory effort, no respiratory distress or use of accessory muscles, speaking in full sentences, no tachypnea. EXTREMITIES: No cyanosis. SKIN: Normal skin appearance. NEUROLOGIC: Alert and oriented x4. PSHYCHIATRIC: Appropriate affect, mood normal, behavior normal, intact thought and speech. LABORATORY DATA: I have personally reviewed and interpreted each of the patient?s relevant lab tests, abnormal findings are below: Date 12/17/24 02/24/25 ??WHITE?BLOOD?COUNT?(Thou/mm3) ? 6.4 ??RED?BLOOD?COUNT?(Miln/mm3) ? 2.62?L ??HEMOGLOBIN?(gm/dl) ? 9.0?L ??HEMATOCRIT?(%) ? 29.4?L ??PLATELET?COUNT?(Thou/mm3) ? 422 ??NEUTROPHILS?%,?AUTO?(%) ? 64 ??LYMPH?%,?AUTO?(%) ? 21 ??NEUTROPHILS,?AUTO?(Thou/mm3) ? 4.1 ??GLUCOSE,RANDOM?(mg/dL) ? 112?H ??BLOOD?UREA?NITROGEN?(mg/dL) ? 18 ??CREATININE?(mg/dL) ? 0.90 ??SODIUM?(mmol/L) ? 142 ??POTASSIUM?(mmol/L) ? 4.5 ??CHLORIDE?(mmol/L) ? 110?H ??CrCl?(CandG)?(ml/min) ? 39.16 ??AST/SGOT?(Unit/L) ? 19 ??ALT/SGPT?(Unit/L) ? 23 ??ALKALINE?PHOSPHATASE?(Unit/L) ? 80 ??BILIRUBIN,?TOTAL?(mg/dL) ? 0.2?L ??PROTEIN?TOTAL?(gm/dl) ? 5.0?L ??ALBUMIN,?SERUM?(gm/dl) ? 3.0?L ??GLOBULIN?(gm/dl) ? 2.0?L ??ALBUMIN/GLOBULIN?RATIO ? 1.5 ??CALCIUM,?SERUM?(mg/dL) ? 8.1?L ??CALCIUM?SERUM?(CORRECTED)?(mg/dL) ? 8.9 ??RETICULOCYTE?ABSOLUTE?AUTO?(Biln/L) 49.2 ? ??TOTAL?IRON?BINDING?CAP?(S*)?(mcg/dL) ? 187?L ??UNBOUND?IBC?(mcg/dL) ? 135?L ASSESSMENT/PLAN:?[facility] Assessment[facility]Plan? 1. History of iron deficiency anemia. History of B12 deficiency, started B12 on 06/08/2024. Hx of partial gastrectomy twice due to peptic ulcer disease (1997, 1999). Bone marrow biopsy negative (06/13/2023, 08/07/2022, 10/20/2019). Previously bone marrow biopsies have been ordered for anemia and macrocytosis. Oozing gastric ulcers, EGD, pathology negative for malignancy 09/09/2023). s/p multiple Feraheme infusions last time on 06/08/2024, pending 2 additional IV Feraheme infusions. Unable to tolerate ferrous sulfate due to severe constipation. CT of abdomen and pelvis was ordered due to previous complaint of epigastric pain, nausea, decreased appetite. No pain today. CT showed mild enlargement of the bile duct HIDA scan recommend, did not show spleen enlarged, 03/05/2024 Ultrasound of the liver done 05/07/2024 showed abnormally enlarged common bile duct 14 mm, consider MRCP. MRCP recommended ERCP to exclude malignant stricture of the distal common bile duct, 06/10/2024. Pending referral to GI for ERCP and to follow-up for patient's complaint heartburn nausea and weight loss, patient lost 11 lb from November 2023. Previously, bone marrow biopsies had been ordered due to patient's anemia and macrocytosis. We do not have a recent CBC. Labs from 05/05/2024 showed hemoglobin 11.5, MCV 111, reticulocyte count 1.9, WBC was 5.6, platelet count 249,000, creatinine 0.6, EGFR>60, calcium 9.3. Most likely macrocytosis secondary to increased reticulocyte production. Patient have no recent dark stools. Patient has persistent anemia with a current hemoglobin of 10 g/dL (normal range for women is typically 12-15.5 g/dL). Previous workup, including B12 and iron studies, has returned normal results. The etiology of the anemia remains unclear, necessitating further investigation. Bone marrow biopsy was negative Repeat labs shows low B12 and iron sats Will start subcu B12 as well as iron Will start on IV fluids 2. Breast cancer screening Bilateral breast ultrasound, BI-RADS Category 3 probably benign findings, repeat bilateral breast ultrasound in 6 months, 01/27/2024. Bilateral mammogram screening showed benign findings, recommended bilateral ultrasound in 12/24/2023. Right breast biopsy showed benign fibroadenomas, negative for carcinoma, 10/04/2023 bilateral breast ultrasound follow-up for 07/2024 showed nodules in both breast Patient have repeat ultrasound scheduled next week 3. Patient reports PCP ordered PTH hormone level, patient requesting we give her the results, PTH is 96.1. Patient advised to follow-up with PCP as soon as possible for result Referral to endocrinology. Patient is yet to see the weatherization operations manager Cholelithiasis and choledocholithiasis Assessment: Incidental finding of gallstones in the gallbladder and bile duct noted on imaging. This condition requires further evaluation and management by a laundromat worker. Plan: -Follow-up with the Dr Cruz as well as at [facility] - economic research assistant to provide referral paperwork to patient Biliary tract abnormality Assessment: Patient has abnormal liver function tests and imaging studies suggesting a narrowed bile duct. Previous ultrasound and MRI/CT (patient unsure which) have been performed. MRCP has been recommended to further evaluate the gallbladder and biliary system. Plan: - Refer to hepatobiliary specialist for ERCP (Endoscopic Retrograde Cholangiopancreatography) to evaluate bile ducts and rule out any growths - Patient to schedule appointment with hepatobiliary specialist Hypocalcemia and Osteoporosis Assessment: Patient has very low calcium levels and a known diagnosis of osteoporosis. She reports not taking calcium supplements as recommended. Plan: - Start daily calcium supplementation with fatty foods - Educate patient on the importance of calcium supplementation for bone health Audelia West, female patient with history of gastric bypass, presenting with fatigue and concerns about cancer. Recent workup negative for malignancy. ORDERS: Order # Description [id number] Follow Up 6 Month RETURN TO CLINIC: I reviewed the diagnosis, prognosis, and recommended treatment/procedure options with the patient (and/or their legal territory sales representative), including the potential benefits, risks, side effects and alternative therapies. We also discussed the option of no treatment and the possibility of clinical trial participation, if applicable. All questions were addressed, and they demonstrated understanding. They provided informed consent to proceed with the proposed plan of care. BILLING AND COMPLIANCE: I reviewed external records from providers outside my specialty as summarized above. I spent a total of 50 minutes on this patient?s care on the day of their visit excluding time spent related to any billed procedures. This time includes time spent with the patient as well as time spent documenting in the medical record, reviewing patients records and tests, obtaining history, placing orders, communicating with other healthcare professionals, counseling the patient, family or caregiver, and/or care coordination for the diagnoses above. Electronically Signed by: Moi Vital MD T: 2:48 PM CC: Kenn?Ivette,? PCP: Wilfrido Ramírez Referring: Wilfrido Ramírez This document was completed utilizing speech recognition software. Grammatical errors, random word insertions, pronoun errors, and incomplete sentences are an occasional consequence of this system due to software limitations, ambient noise, and hardware issues. Any formal questions or concerns about the content, text or information contained within the body of this dictation should be directly addressed to the provider for clarification.
== END 2025-03-24 23:59 | disposition home or self-care (01) ==
LOC: SCTC 14:00
PROVIDERS: PCP Physician Assistant; Referring Provider Physician Assistant; Visit Provider Internal Medicine Hematology & Oncology
DX: D50.9 Iron deficiency anemia, unspecified (principal); E53.8 Deficiency of other specified B group vitamins; Z98.84 Bariatric surgery status; Z90.3 Acquired absence of stomach [part of]; Z87.11 Personal history of peptic ulcer disease; N63.20 Unspecified lump in the left breast, unspecified quadrant; N63.10 Unspecified lump in the right breast, unspecified quadrant; K80.20 Calculus of gallbladder without cholecystitis without obstruction; M81.0 Age-related osteoporosis without current pathological fracture; E83.51 Hypocalcemia
CPT/HCPCS: 96365; 96372; 99212; A4216; J1756; J3420; J3490; J7040; G0463